=== PATIENT | female | born 1960 | race African-American/Black ===

== ENCOUNTER 2017-05-10 11:35 | Outpatient (CLI) | payer MEDICARE, MEDICAID ==
[~2017-05-10 11:35] MED LIST: ERGO50003 PO; HYDR-3326 PO; LANS30CA56 PO; PRAV40TA PO; TRAZ-147 PO
[2017-05-10 12:06] LABS: BASOPHILS # (AUTO) 0.3 /CMM (0.0-0.2); EOSINOPHILS # (AUTO) 0.1 /CMM (0.0-0.7); EOSINOPHILS % (AUTO) 0.9 % (0.0-6.0); HEMATOCRIT 42 % (33-45); HEMOGLOBIN 13.9 g/dL (11.5-14.8); LYMPHOCYTES # (AUTO) 2.7 /CMM (0.8-4.8); LYMPHOCYTES % (AUTO) 33.9 % (20.0-44.0); MEAN CORPUSCULAR HEMOGLOBIN 30 PG (26.0-33.0); MEAN CORPUSCULAR HGB CONC 33 g/dl (31.0-36.0); MEAN CORPUSCULAR VOLUME 90 fL (82-100); MONOCYTES # (AUTO) 0.7 /CMM (0.1-1.30); MONOCYTES % (AUTO) 8.3 % (2.0-12.0); NEUTROPHILS # (AUTO) 4.3 /CMM (1.8-8.9); NEUTROPHILS % (AUTO) 52.9 % (43.0-81.0); PLATELET COUNT (AUTO) 289 /CMM (150-450); RDW COEFFICIENT OF VARIATION 12.7 (11.5-15.0); RED BLOOD CELL COUNT(AUTO) 4.65 MIL/uL (4.0-5.2); WHITE BLOOD COUNT (AUTO) 8.1 K/uL (4.3-11.0)
[2017-05-10 12:49] LABS: INR 0.88 (0.87-1.13); PROTHROMBIN TIME 9.2 SECS (9.5-12.7)
== END 2017-05-10 23:59 | disposition home or self-care (01) ==
LOC: LAB 11:35
PROVIDERS: ATTEND Internal Medicine
DX: Z01.818 Encounter for other preprocedural examination (principal); R06.00 Dyspnea, unspecified
CPT/HCPCS: 36415; 71010-TC; 85025-TC; 85610-TC; 85730-TC

== ENCOUNTER 2017-09-22 11:59 | Outpatient (CLI) | payer MEDICARE, MEDICAID ==
[~2017-09-22 11:59] MED LIST changes: +ERGO500014 PO; -ERGO50003 PO; -HYDR-3326 PO; +HYDR-3974 PO
[2017-09-22 12:51] LABS: BASOPHILS % (AUTO) 0.8 % (0.0-2.0); EOSINOPHILS # (AUTO) 0.1 /CMM (0.0-0.7); EOSINOPHILS % (AUTO) 1.5 % (0.0-6.0); HEMATOCRIT 39 % (33-45); HEMOGLOBIN 13.1 g/dL (11.5-14.8); LYMPHOCYTES # (AUTO) 2.3 /CMM (0.8-4.8); MEAN CORPUSCULAR HEMOGLOBIN 30 PG (26.0-33.0); MEAN CORPUSCULAR HGB CONC 34 g/dl (31.0-36.0); MEAN CORPUSCULAR VOLUME 89 fL (82-100); MONOCYTES # (AUTO) 0.5 /CMM (0.1-1.30); MONOCYTES % (AUTO) 8.7 % (2.0-12.0); NEUTROPHILS # (AUTO) 2.9 /CMM (1.8-8.9); PLATELET COUNT (AUTO) 289 /CMM (150-450); RDW COEFFICIENT OF VARIATION 14.5 (11.5-15.0); RED BLOOD CELL COUNT(AUTO) 4.36 MIL/uL (4.0-5.2); WHITE BLOOD COUNT (AUTO) 5.9 K/uL (4.3-11.0)
[2017-09-22 12:57] LABS: CALCIUM, SERUM 8.9 mg/dL (8.5-10.1); CREATININE 0.8 mg/dL (0.6-1.3); POTASSIUM 4.1 mmol/L (3.5-5.1)
[2017-09-22 13:09] LABS: INR 0.95 (0.87-1.13)
[2017-09-22 13:43] LABS: APPEARANCE,URINE SL CLOUDY (CLEAR); BILIRUBIN,URINE 1+ (NEGATIVE); BLOOD, URINE NEGATIVE Ery/uL (NEGATIVE); COLOR,URINE YELLOW (YELLOW); KETONES,URINE TRACE (NEGATIVE); LEUKOCYTE ESTERASE ,URINE NEGATIVE (NEGATIVE); NITRITE, URINE NEGATIVE (NEGATIVE); PROTEIN,URINE TRACE mg/dl (NEGATIVE); UGLUCOSE NEGATIVE (NEGATIVE); UROBILINOGEN,URINE 0.2 EU/dL (0.2)
[2017-09-22 13:47] LABS: RBC,URINE 0-2 /HPF (0-2)
[2017-09-22 13:48] LABS: BACTERIA,URINE Moderate /HPF (None Seen); SQUAMOUS EPITHELIAL CELL,UR Moderate /HPF (None Seen); WBC,URINE 0-2 /HPF (0-3)
== END 2017-09-22 23:59 | disposition home or self-care (01) ==
LOC: LAB 11:59
PROVIDERS: ATTEND Internal Medicine
DX: Z01.818 Encounter for other preprocedural examination (principal)
CPT/HCPCS: 36415; 71046; 80048-TC; 81000-TC; 85025-TC; 85610-TC; 85730-TC; 87086-TC

== ENCOUNTER 2018-11-15 13:55 | Emergency (ER) | payer MEDICARE, MEDICAID ==
[~2018-11-15] VITALS: Ht 167.6 cm; Wt 74.8 kg
[~2018-11-15 13:55] MED LIST changes: -TRAZ-147 PO; +TRAZ-214 PO
--- NOTE | 2018-11-15 14:25 | NUR ---
AAOX3, C/O DIFFUSED ABDOMINAL PAIN S/P ACCIDENTAL INGESTION OF HYDROGEN PEROXIDE. RR IS EVEN AND UNLABORED WITH NAD NOTED. SKIN IS WARM AND DRY. AWAITING MD FOR EVAL.
[2018-11-15] MEDS ORDERED: PANTOPRAZOLE 40 MG VIAL IV ONE (15:00)
[2018-11-15] MEDS ORDERED: FAMOTIDINE/PF INJ 20 MG/2 ML VIAL IV ONE ×2 (15:00→15:04)
[2018-11-15] MEDS ORDERED: IV NS 0.9% 1,000 ML BAG IV ONE (15:00)
[2018-11-15] MEDS ORDERED: MAG HYDROX/AL HYDROX/SIMETH 30 ML UDC PO ONE (15:00)
[2018-11-15] MEDS ORDERED: ONDANSETRON HCL/PF 4 MG/2 ML VIAL IVP ONE (15:00)
[2018-11-15] MEDS ORDERED: MAG HYDROX/AL HYDROX/SIMETH 30 ML UDC ONE (15:04)
[2018-11-15] MEDS ORDERED: ONDANSETRON HCL/PF 4 MG/2 ML VIAL ONE (15:04)
[2018-11-15] MEDS ORDERED: PANTOPRAZOLE 40 MG VIAL ONE (15:04)
[2018-11-15 15:18] LABS: BASOPHILS # (AUTO) 0.1 /CMM (0.0-0.2); BASOPHILS % (AUTO) 0.7 % (0.0-2.0); EOSINOPHILS % (AUTO) 0.4 % (0.0-6.0); HEMATOCRIT 43 % (33-45); HEMOGLOBIN 14.6 g/dL (11.5-14.8); LYMPHOCYTES # (AUTO) 1.6 /CMM (0.8-4.8); LYMPHOCYTES % (AUTO) 16.5 % (20.0-44.0); MEAN CORPUSCULAR HGB CONC 34 g/dl (31.0-36.0); MEAN CORPUSCULAR VOLUME 95 fL (82-100); MONOCYTES # (AUTO) 0.5 /CMM (0.1-1.30); MONOCYTES % (AUTO) 5.4 % (2.0-12.0); NEUTROPHILS # (AUTO) 7.4 /CMM (1.8-8.9); PLATELET COUNT (AUTO) 312 /CMM (150-450); WHITE BLOOD COUNT (AUTO) 9.6 K/uL (4.3-11.0)
[2018-11-15 15:25] LABS: ALANINE AMINOTRANSFERASE 18 U/L (12-78); ALBUMIN 3.4 g/dL (3.4-5.0); ALKALINE PHOSPHATASE 104 U/L (46-116); ASPARTATE AMINOTRANSFERASE 15 U/L (15-37); BILIRUBIN,DIRECT 0.1 mg/dL (0.0-0.2); BILIRUBIN,TOTAL 0.5 mg/dL (0.2-1.0); CALCIUM, SERUM 9.3 mg/dL (8.5-10.1); CARBON DIOXIDE 29 mmol/L (21-32); CHLORIDE 103 mmol/L (98-107); CREATININE 0.9 mg/dL (0.6-1.3); GLUCOSE 134 mg/dL (74-106); LIPASE 71 U/L (73-393); POTASSIUM 3.5 mmol/L (3.5-5.1); SODIUM SERUM 139 mmol/L (136-145); TOTAL PROTEIN, SERUM 7.5 g/dL (6.4-8.2); UREA NITROGEN, BLOOD 10 mg/dL (7-18)
[2018-11-15] MEDS ORDERED: oxyCODONE/APAP (5/325 MG) 1 UDTAB TABLET PO ONE (15:30)
--- NOTE | 2018-11-15 15:30 | NUR ---
URINE OBTAINED SENT TO THE LAB.
[2018-11-15] MEDS ORDERED: oxyCODONE/APAP (5/325 MG) 1 UDTAB TABLET ONE (15:31)
[2018-11-15 15:49] LABS: APPEARANCE,URINE SL CLOUDY (CLEAR); BILIRUBIN,URINE 1+ (NEGATIVE); BLOOD, URINE NEGATIVE Ery/uL (NEGATIVE); COLOR,URINE YELLOW (YELLOW); KETONES,URINE 1+ (NEGATIVE); LEUKOCYTE ESTERASE ,URINE NEGATIVE (NEGATIVE); NITRITE, URINE NEGATIVE (NEGATIVE); PH,URINE 5.5 (5.0-8.0); PROTEIN,URINE TRACE mg/dl (NEGATIVE); UGLUCOSE NEGATIVE (NEGATIVE)
[2018-11-15 16:30] LABS: RBC,URINE 0-2 /HPF (0-2); WBC,URINE 0-2 /HPF (0-3)
[2018-11-15 16:31] LABS: BACTERIA,URINE Moderate /HPF (None Seen); SQUAMOUS EPITHELIAL CELL,UR Moderate /HPF (None Seen); URINE AMORPHOUS URATE Few /HPF (None Seen)
--- NOTE | 2018-11-15 17:05 | NUR ---
IV removed. Catheter intact and site benign. Pressure and 4x4 applied to site. No bleeding noted.Patient discharged to home in stable condition. Written and verbal after care instructions given. Patient verbalizes understanding of instruction.
[2018-11-15 17:08] VITALS: BP 124/69
== END 2018-11-15 17:09 | disposition home or self-care (01) ==
LOC: ER 13:55
DX: T49.0X1A Poisoning by local antifungal, anti-infective and anti-inflammatory drugs, accidental (unintentional), initial encounter (principal); K29.60 Other gastritis without bleeding; R53.1 Weakness; R42 Dizziness and giddiness; I10 Essential (primary) hypertension; E11.9 Type 2 diabetes mellitus without complications; E78.00 Pure hypercholesterolemia, unspecified; F17.200 Nicotine dependence, unspecified, uncomplicated; Z60.2 Problems related to living alone; Z98.890 Other specified postprocedural states; Y92.89 Other specified places as the place of occurrence of the external cause
CPT/HCPCS: 36415; 80048; 80076; 81001; 83690; 84484; 85025; 87086; 93005; 96361; 96374; 96375; 99284; C9113; J2405; J3490; J7030; 81000-TC

== ENCOUNTER 2018-11-20 01:18 | Emergency (ER) | payer MEDICARE, MEDICAID ==
[~2018-11-20] VITALS: Ht 167.6 cm; Wt 90.7 kg
--- NOTE | 2018-11-20 01:40 | NUR ---
PT BIBSELF C/O ABDOMINAL PAIN AND RECTAL BLEEDING X1 DAY. PT AAOX4. RESPIRATIONS EVEN AND UNLABORED. SKIN INTACT. NO ACUTE DISTRESS NOTED. WILL CONTINUE TO MONITOR
[2018-11-20] MEDS ORDERED: FAMOTIDINE/PF INJ 20 MG/2 ML VIAL IV ONE (01:45)
[2018-11-20] MEDS ORDERED: ONDANSETRON HCL/PF 4 MG/2 ML VIAL ONE (01:45)
[2018-11-20] MEDS ORDERED: ONDANSETRON HCL/PF 4 MG/2 ML VIAL IVP ONE (02:00)
[2018-11-20] MEDS ORDERED: IV NS 0.9% 1,000 ML BAG IV ONE (02:00)
[2018-11-20] MEDS ORDERED: FAMOTIDINE/PF INJ 40 MG in IV D5W 50 ML IV ONE (02:00)
--- NOTE | 2018-11-20 02:05 | NUR ---
MERCHANDISE PLANNER AT BEDSIDE FOR BLOOD DRAW
[2018-11-20 02:19] LABS: BASOPHILS % (AUTO) 0.7 % (0.0-2.0); EOSINOPHILS % (AUTO) 0.9 % (0.0-6.0); HEMATOCRIT 34 % (33-45); HEMOGLOBIN 11.8 g/dL (11.5-14.8); LYMPHOCYTES # (AUTO) 2.4 /CMM (0.8-4.8); MEAN CORPUSCULAR HGB CONC 35 g/dl (31.0-36.0); MEAN CORPUSCULAR VOLUME 95 fL (82-100); MONOCYTES # (AUTO) 0.6 /CMM (0.1-1.30); NEUTROPHILS # (AUTO) 3.6 /CMM (1.8-8.9); NEUTROPHILS % (AUTO) 53.4 % (43.0-81.0); PLATELET COUNT (AUTO) 296 /CMM (150-450); RED BLOOD CELL COUNT(AUTO) 3.61 MIL/uL (4.0-5.2); WHITE BLOOD COUNT (AUTO) 6.7 K/uL (4.3-11.0)
[2018-11-20 02:24] LABS: CALCIUM, SERUM 8.3 mg/dL (8.5-10.1); CREATININE 0.8 mg/dL (0.6-1.3); POTASSIUM 3.9 mmol/L (3.5-5.1)
--- NOTE | 2018-11-20 02:25 | NUR ---
Edward portillo in ED - 11/20/18 at 0226 by HAYLEY PT BROUGHT BY RADIOLOGY FOR CT
--- NOTE | 2018-11-20 02:26 | NUR ---
PT RETURNED FROM CT
[2018-11-20 02:30] LABS: ALBUMIN 2.9 g/dL (3.4-5.0); BILIRUBIN,TOTAL 0.3 mg/dL (0.2-1.0); TOTAL PROTEIN, SERUM 6.2 g/dL (6.4-8.2)
--- NOTE | 2018-11-20 03:36 | NUR ---
Patient discharged to home in stable condition. Written and verbal after care instructions given. Patient verbalizes understanding of instruction. IV removed. Catheter intact and site benign. Pressure and 4x4 applied to site. No bleeding noted. Pt ambulatory with a steady gait
[2018-11-20 03:38] VITALS: BP 127/85
== END 2018-11-20 03:39 | disposition home or self-care (01) ==
LOC: ER 01:20
DX: K62.5 Hemorrhage of anus and rectum (principal); I10 Essential (primary) hypertension; E11.9 Type 2 diabetes mellitus without complications; E78.00 Pure hypercholesterolemia, unspecified; F17.200 Nicotine dependence, unspecified, uncomplicated; Z98.890 Other specified postprocedural states; Z60.2 Problems related to living alone; Z79.899 Other long term (current) drug therapy
CPT/HCPCS: 36415; 71045; 74176; 80048; 80076; 85025; 85730; 86850; 93005; 96365; 96375; 99284; J2405; J3490 ×2; J7030; J7060 ×2

== ENCOUNTER 2018-11-24 11:31 | Inpatient (IN) | payer MEDICARE, MEDICAID ==
[~2018-11-24] VITALS: Ht 167.6 cm; Wt 101.2 kg
[2018-11-24] VITALS (10 sets, daily range): BP systolic 101–153; BP diastolic 54–92
[2018-11-24] MEDS ORDERED: PANTOPRAZOLE 80 MG in IV NS 0.9% 100 ML IV ONE (12:00)
[2018-11-24] MEDS ORDERED: PANTOPRAZOLE 40 MG VIAL IV ONE (12:00)
[2018-11-24] MEDS ORDERED: IV NS 0.9% 1,000 ML BAG IV ONE (12:00)
[2018-11-24] MEDS ORDERED: NEXIUM 40 MG VIAL IV ONE (12:30)
--- NOTE | 2018-11-24 12:31 | NUR ---
RN NOTE 1200: BIBRA accompanied by family member, c/o bloody stools x2days. 1230: RW g20 PIV, started on IVF as ordered. With c/o 5/10 abdominal pain with verbal order of Morphine 4mg and Zofran 4mg PIV. Awaiting Protonix from pharmacy.
--- NOTE | 2018-11-24 12:31 | NUR ---
DR. FITCH MADE AWARE RE: PHARMACY RECOMMENDATION OF PROTONIX ORDER. WITH NEW ORDER TO D/C PROTONIX AND TO GIVE NEXIUM 40MG IV ONCE. PRIMARY RN AWARE.
[2018-11-24] MEDS ORDERED: ONDANSETRON HCL/PF 4 MG/2 ML VIAL ONE (12:33)
[2018-11-24] MEDS ORDERED: MORPHINE SULFATE INJ 4 MG/ML DISP.SYRIN ONE (12:34)
[2018-11-24 12:44] LABS: BASOPHILS # (AUTO) 0.1 /CMM (0.0-0.2); BASOPHILS % (AUTO) 0.7 % (0.0-2.0); EOSINOPHILS % (AUTO) 0.7 % (0.0-6.0); HEMATOCRIT 28 % (33-45); HEMOGLOBIN 9.5 g/dL (11.5-14.8); LYMPHOCYTES # (AUTO) 2.5 /CMM (0.8-4.8); LYMPHOCYTES % (AUTO) 31.4 % (20.0-44.0); MEAN CORPUSCULAR HGB CONC 34 g/dl (31.0-36.0); MEAN CORPUSCULAR VOLUME 96 fL (82-100); MONOCYTES # (AUTO) 0.7 /CMM (0.1-1.30); MONOCYTES % (AUTO) 8.1 % (2.0-12.0); NEUTROPHILS # (AUTO) 4.8 /CMM (1.8-8.9); NEUTROPHILS % (AUTO) 59.1 % (43.0-81.0); PLATELET COUNT (AUTO) 421 /CMM (150-450); RED BLOOD CELL COUNT(AUTO) 2.91 MIL/uL (4.0-5.2); WHITE BLOOD COUNT (AUTO) 8.1 K/uL (4.3-11.0)
[2018-11-24] MEDS ORDERED: MORPHINE SULFATE INJ 2 MG/ML DISP.SYRIN IV ONE (13:00)
[2018-11-24] MEDS ORDERED: ONDANSETRON HCL/PF 4 MG/2 ML VIAL IVP ONE (13:00)
[2018-11-24] MEDS ORDERED: METF-440 PO (13:10)
[2018-11-24] MEDS ORDERED: ROSU40TA22 PO (13:10)
[2018-11-24] MEDS ORDERED: ESCI10TA PO (13:10)
[2018-11-24] MEDS ORDERED: ASPI-1152 PO (13:10)
[2018-11-24] MEDS ORDERED: BENA5TAB5 PO (13:10)
[2018-11-24 13:14] LABS: CALCIUM, SERUM 8.7 mg/dL (8.5-10.1); CARBON DIOXIDE 27 mmol/L (21-32); CHLORIDE 106 mmol/L (98-107); CREATININE 0.8 mg/dL (0.6-1.3); GLUCOSE 95 mg/dL (74-106); POTASSIUM 4.9 mmol/L (3.5-5.1); SODIUM SERUM 140 mmol/L (136-145); UREA NITROGEN, BLOOD 25 mg/dL (7-18)
[2018-11-24 13:27] LABS: ALANINE AMINOTRANSFERASE 16 U/L (12-78); ALBUMIN 2.9 g/dL (3.4-5.0); ALKALINE PHOSPHATASE 110 U/L (46-116); ASPARTATE AMINOTRANSFERASE 12 U/L (15-37); BILIRUBIN,DIRECT 0.1 mg/dL (0.0-0.2); BILIRUBIN,TOTAL 0.2 mg/dL (0.2-1.0); LIPASE 76 U/L (73-393); TOTAL PROTEIN, SERUM 6.3 g/dL (6.4-8.2)
--- NOTE | 2018-11-24 14:21 | NUR ---
Awake, alert, verbalized feeling better after meds. Awaiting room inpatient
--- NOTE | 2018-11-24 14:29 | NUR ---
[id number] TELE MARILYN ACCEPTED
--- NOTE | 2018-11-24 15:01 | NUR ---
RN NOTE Report given at bedside, given to Odessa RIVERA. Patient VSS at this time. No active bleeding noted during in ER.
--- NOTE | 2018-11-24 15:30 | NUR ---
MAGICIAN HELPER NOTES PT ADMITTED ON TELE. ON TELEMONITORING OF SR WITH HR OF 85.
[2018-11-24] MEDS: IV NS 0.9% 1,000 ML IV PRN (16:06)
[2018-11-24] MEDS ORDERED: PEG 3350/NA SULF,BICARB,CL/KCL 4,000 ML BOTTLE PO ONE (16:30)
[2018-11-24] MEDS ORDERED: NA PHOS,M-B/NA PHOS,DI-BA 1 EA ENEMA RC PRN (16:30)
[2018-11-24] MEDS ORDERED: MAGNESIUM CITRATE 296 ML BOTTLE PO ONE ×2 (16:30→19:30)
--- NOTE | 2018-11-24 16:30 | NUR ---
BIODIESEL PRODUCT MANAGERWINTER SPORTS MANAGER NOTES RECEIVED PT VIA [facility] WITH 2 NURSES ASSIST. PT ABLE TO TRANSFER/AMBULATORY FROM [facility] TO ROOM/BED. PT A/O X4. TOLERATING RA WITH NO ACUTE RESPIRATORY DISTRESS NOTED. PIV TO RIGHT WRIST G20, FLUSHED WITH NS, INTACT AND OPERATIONAL. PT DENIES ANY CHEST PAIN. ADDED MILD PAIN IN THE ABDOMEN AND FELT A LITTLE NAUSEOUS, PAIN MEDICINE AND ZOFRAN RECENTLY GIVEN BEFORE PT TRANSFER TO ROOM PER ER NURSE, PT ALSO AWARE AND FAMILY BEDSIDE. SKIN IS INTACT. PT KEPT COMFORTABLE. DR SANDERS CAME AND SEE PT PERSONALLY AND MADE AWARE OF PT AND FAMILY FOR THE PLAN. CALL LIGHT KEPT WITHIN REACH. WILL CONTINUE TO MONITOR.
--- NOTE | 2018-11-24 17:00 | NUR ---
RN NOTES PT WASN'T ABLE TO TAKE MAGNESIUM CITRATE X1DOSE AT THIS TIME, PT ARGUING WITH STAFFS, SECURITY REGARDING HER SMOKING. DATABASE DESIGN ANALYST LENO ANTHONY STATED DON'T LET PT SMOKE. RN OFFERED NICOTINE PATCH, PT REFUSED. PT INSISTED FOR HER SMOKING PHYSICALLY OUTSIDE. CN AWARE. WILL ORDER ANOTHER ONE TIME DOSE WHEN PT COMES BACK FROM SMOKING OUTSIDE.
[2018-11-24] MEDS: NEXIUM 40 MG VIAL IV SCH (17:04)
[2018-11-24 17:14] LABS: IRON, SERUM 34 ug/dl (50-175); TOTAL IRON BINDING CAPACITY 254 ug/dl (250-450)
[2018-11-24 17:27] LABS: FERRITIN 28 ng/mL (8-388)
--- NOTE | 2018-11-24 17:35 | NUR ---
SKEIN BLEACHER NOTES PT AWARE OF PLAN TOMORROW FOR EGD AND COLONOSCOPY. CONSENTS SIGNED BY PT. BT TO TRANSFUSE 1PRBC TODAY IN PREPARATION FOR PROCEDURE. CONSENTS AGAIN OBTAINED FROM PT. WILL ENDORSE TO INCOMING NIGHT NURSE.
--- NOTE | 2018-11-24 19:42 | NUR ---
RN OPENING NOTES RECEIVED PATIENT AWAKE IN BED. PATIENT IS A/O X 4. NO SIGNS OF DISTRESS OR DISCOMFORT AT THIS TIME. DENIES PAIN AT THIS TIME. IV SITE PATENT AND INTACT. SAFETY PRECAUTIONS IMPLEMENTED. CALL LIGHT WITHIN REACH. WILL CONTINUE TO MONITOR PATIENT THROUGHOUT THE SHIFT.
--- NOTE | 2018-11-24 20:06 | NUR ---
RN NOTES PATIENT INSISTED ON SMOKING. PATIENT IS CURRENTLY DOWNSTAIRS SMOKING 1 STICK OF CIGARETTE. PATIENT IS ACCOMPANIED BY XIOMARA.
--- NOTE | 2018-11-24 21:00 | NUR ---
RN NOTES VITALS PRIOR TO PICKING UP BLOOD FROM BLOOD BANK: TEMP 98.0 F, BP 129/65, PULSE 73, RR 18.
--- NOTE | 2018-11-24 22:48 | NUR ---
RN NOTES PATIENT IS TOLERATING BLOOD TRANSFUSION AT THIS TIME. NO SIGNS OF REACTIONS. VITAL SIGNS ARE STABLE AND CONSISTENT AT THIS TIME.
[2018-11-24] MEDS: HYDROCODONE/APAP 5/325MG 1 EACH TABLET PO PRN (23:20)
[2018-11-25] VITALS: BP_SYST 122; BP_DIAS 70; BP_DIAS 92
--- NOTE | 2018-11-25 00:15 | NUR ---
RN NOTES BLOOD TRANSFUSION COMPLETED. PATIENT VITAL SIGNS STABLE POST TRANSFUSION. NO REACTIONS OCCURRED THROUGHOUT THE TRANSFUSION. PATIENT TOLERATED BLOOD TRANSFUSION WELL. WILL CONTINUE TO MONITOR PATIENT THROUGHOUT THE SHIFT.
[2018-11-25 04:00] VITALS: BP 139/71
--- NOTE | 2018-11-25 06:17 | NUR ---
RN CLOSING NOTES PATIENT IS RESTING IN BED, COMFORTABLY. PATIENT IS TOLERATING RA WITH NO ACUTE RESPIRATORY DISTRESS NOTED. PATIENT DENIES SOB. IV SITE PATENT AND INTACT, RUNNING WELL. ALL NEEDS MET. PATIENT DENIES DISCOMFORT OR PAIN AT THIS TIME. ALL MEDS GIVEN. SAFETY PRECAUTIONS IMPLEMENTED. TELE READING SR 64 AT THIS TIME. CALL LIGHT WITHIN REACH. CONSENT IS OBTAINED. WILL ENDORSE TO AM SHIFT FOR CONTINUITY OF CARE.
[2018-11-25 07:06] LABS: BASOPHILS # (AUTO) 0.1 /CMM (0.0-0.2); EOSINOPHILS % (AUTO) 1.5 % (0.0-6.0); HEMATOCRIT 28 % (33-45); HEMOGLOBIN 9.6 g/dL (11.5-14.8); LYMPHOCYTES # (AUTO) 2.8 /CMM (0.8-4.8); LYMPHOCYTES % (AUTO) 43.1 % (20.0-44.0); MEAN CORPUSCULAR HGB CONC 34 g/dl (31.0-36.0); MEAN CORPUSCULAR VOLUME 96 fL (82-100); MONOCYTES # (AUTO) 0.6 /CMM (0.1-1.30); MONOCYTES % (AUTO) 9.5 % (2.0-12.0); NEUTROPHILS % (AUTO) 44.9 % (43.0-81.0); PLATELET COUNT (AUTO) 342 /CMM (150-450); RED BLOOD CELL COUNT(AUTO) 2.93 MIL/uL (4.0-5.2); WHITE BLOOD COUNT (AUTO) 6.6 K/uL (4.3-11.0)
--- NOTE | 2018-11-25 07:20 | NUR ---
BUSINESS SYSTEMS LEAD OPENING NOTES RECEIVED PT IN THE ROOM, AWAKE, A/O X4. PT TOLERATING RA, WITH NO ACUTE RESPIRATORY DISTRESS NOTED. ON TELEMONITORING SB WITH HR OF 58. WHILE DOING ROUNDS, PT JUST CAME BACK FROM SMOKING OUTSIDE WITH NIGHT BATTERY STACKER. PT REMINDED OF SMOKING HAZARDS AND RISKS. PT INSIST TO SMOKE WHENEVER SHE WANTS. PT DENIES PAIN OR ANY DISCOMFORT AT THIS MOMENT. PT DENIES ANY CONCERNS AND QUESTIONS.IVF NS AT 75ML/HR TO RIGHT WRIST G20, INTACT AND FLUID INFUSING WELL. PT KEPT COMFORTABLE. HOB ELEVATED. PT'S BED IN LOWEST, LOCKED POSITION WITH SR X2. WILL CONTINUE PLAN OF CARE.
[2018-11-25 07:27] LABS: ALBUMIN 2.5 g/dL (3.4-5.0); BILIRUBIN,TOTAL 0.3 mg/dL (0.2-1.0); CALCIUM, SERUM 8.3 mg/dL (8.5-10.1); CREATININE 0.7 mg/dL (0.6-1.3); POTASSIUM 3.9 mmol/L (3.5-5.1); TOTAL PROTEIN, SERUM 5.5 g/dL (6.4-8.2)
[2018-11-25 08:00] VITALS: BP 103/54
[2018-11-25 08:20] VITALS: BP 103/45
[2018-11-25] MEDS: NEXIUM 40 MG VIAL IV SCH (08:47)
--- NOTE | 2018-11-25 08:50 | NUR ---
RN NOTES CALLED/TEXTED ON-CALL MD FOR GI DR GALICIA TO VERIFY UPCOMING PROCEDURE EGD AND COLONOSCOPY. MD MADE AWARE PT WAS NPO SINCE MIDNIGHT. AWAITING FOR RESPONSE. PRAVEEN/BROOKS AWARE.
[2018-11-25] MEDS ORDERED: ESCITALOPRAM OXALATE (10 MG) 10 MG TABLET PO SCH (09:00)
[2018-11-25] MEDS ORDERED: BENAZEPRIL HCL 5 MG TABLET PO SCH (09:00)
--- NOTE | 2018-11-25 09:37 | NUR ---
RN NOTES RECEIVED RESPONSE FROM GI /GRAYSON. PROCEDURE EGD AND COLONOSCOPY WILL NOT BE DONE TODAY. MD ORDERED PUT PT ON CLEAR LIQUID DIET. WILL INFORM PT.
[2018-11-25] MEDS: METFORMIN 500 MG TABLET PO SCH (09:58)
[2018-11-25] MEDS: ATORVASTATIN 40 MG TABLET PO SCH (09:58)
[2018-11-25] MEDS: IV NS 0.9% 1,000 ML IV PRN (10:42)
--- NOTE | 2018-11-25 11:36 | NUR ---
RN NOTES SEEN AND EVALUATED BY DR GALICIA. MD STATED SINCE LABS ARE STABLE AND NO PRESENT BLOOD IN THE STOOL OF NOW. PT CAN GO BACK TO REGULAR DIET AND NURSE TO CONTINUE MONITORING BLOOD IN THE STOOL AND TAKE PICTURE OF IT AND SEND TO MD. OF NOW, NO SCHEDULING OF EGD AND COLONOSCOPY UNTIL PRESENT BLOOD IN THE STOOL. PRAVEEN/BROOKS MADE AWARE.
--- NOTE | 2018-11-25 13:27 | NUR ---
RN NOTES PT JUST HAD BM, IN THE BEDSIDE COMMODE. STOOL IS DARK BROWN, LIQUID. BUT NOT WATERY. WILL CONTINUE TO MONITOR.
[2018-11-25] MEDS: HYDROCODONE/APAP 5/325MG 1 EACH TABLET PO PRN ×2 (14:41→20:22)
[2018-11-25 16:13] VITALS: BP 93/55
--- NOTE | 2018-11-25 18:49 | NUR ---
MS RN CLOSING NOTES PT REMAINS IN THE ROOM, AWAKE, A/O X4. PT TOLERATING RA, WITH NO ACUTE RESPIRATORY DISTRESS NOTED. PT DENIES PAIN OR ANY DISCOMFORT AT THIS MOMENT. IVF NS AT 75ML/HR TO LEFT HAND G20, INTACT AND FLUID INFUSING WELL. ALL NEEDS AND CARE PROVIDED. PT ABLE TO MAKE NEEDS KNOWN. PT KEPT COMFORTABLE. HOB ELEVATED. PT'S BED IN LOWEST, LOCKED POSITION WITH SR X2. WILL ENDORSE TO INCOMING NIGHT NURSE FOR HUNTER.
--- NOTE | 2018-11-25 19:34 | NUR ---
MS RN OPENING NOTES: RECEIVED PT ON ROOM AIR AND IS TOLERATING WELL. NO SOB NOTED. PT COMPLAINING OF ABDOMINAL PAIN AT THIS TIME. PT SITTING UP IN BED. PT HAS IV ON L HAND IS BEING INFUSED WITH IV NS AT 75ML/HR. BED KEPT IN LOW, LOCKED POSITION, AND SIDE RAILS X 2UP . WILL CONTINUE TO MONITOR PT.
--- NOTE | 2018-11-25 19:45 | NUR ---
MS RN NOTES: PT WANTING TO GO FOR A SMOKE BREAK. EXPLAINED TO PT THAT SMOKING IS NOT RECOMMENDED AND THAT SHE SHOULDN'T SMOKE. "I DON'T WANT TO HEAR THAT RIGHT NOW. I AM ALLOWED A SMOKING BREAK.
[2018-11-25 20:02] VITALS: BP 140/73
--- NOTE | 2018-11-25 20:07 | NUR ---
MS RN NOTES: PT WENT DOWN FOR A SMOKE BREAK WITH TARA MCHUGH.
--- NOTE | 2018-11-25 20:26 | NUR ---
MS RN NOTES: PT BACK FROM SMOKE BREAK AND IS REQUESTING FOR PAIN MEDICATION. PT COMPLAINING OF 7/10 AB PAIN. PT GIVEN NORCO 5 PO. WILL CONTINUE TO MONITOR.
--- NOTE | 2018-11-25 21:37 | NUR ---
MS RN NOTES: NOTED L HAND IV INFILTRATED. PT HARD STICK. WILL ATTEMPT TO START AN IV ONCE ACCUVEIN AVAILABLE.
--- NOTE | 2018-11-25 21:53 | NUR ---
MS RN NOTES: EXPLAINED TO PT THAT SHE ALREADY HAD A SMOKE BREAK. EXPLAINED TO PT RISKS FO SMOKING BUT PT STILL REFUSING. "YOU GUYS CAN'T KEEP DOING THIS TO ME. I HATE BEING IN A HOSPITAL." PT STILL HESITANT AND KEEPS GOING TO NURSE STATION. PT WENT DOWN WITH OSBALDO MCHUGH FOR ANOTHER SMOKE BREAK AND EXPLAINED TO HER THAT IS HER LAST ONE.
--- NOTE | 2018-11-25 21:56 | NUR ---
MS RN NOTES: PAGED DR. SANDERS'S OFFICE AND LEFT A VOICEMAIL. PT REQUESTING FOR A SLEEPING AID. AWAITING FOR CALL BACK.
--- NOTE | 2018-11-25 22:06 | NUR ---
MS RN NOTES: PT BACK FROM SMOKE BREAK.
--- NOTE | 2018-11-25 22:09 | NUR ---
MS RN NOTES: GOT CALL BACK FROM DR. SANDERS; GOT ORDER FOR AMBIEN 10MG PO PRN FOR SLEEP QHS.
[2018-11-25] MEDS: ZOLPIDEM TARTRATE 10 MG TABLET PO PRN (22:26)
--- NOTE | 2018-11-25 22:29 | NUR ---
MS RN NOTES: PT REQUESTING FOR SOMETHING FOR SLEEP. PT WAS ADMINISTERED AMBIEN 10MG PO. EXPLAINED TO PT TO STAY IN BED AND CALL FOR ASSISTANCE WHEN NEEDED SIDE EFFECTS MAY CAUSE DROWSINESS AND DIZZINESS. WILL CONTINUE TO MONITOR.
--- NOTE | 2018-11-25 22:32 | NUR ---
MS RN NOTES: PT ALSO DOES NOT WANT A NEW IV STARTED RIGHT NOW SHE IS HYDRATING ENOUGH AND WANTS TO REST FOR NOW. WILL ATTEMPT AT ANOTHER TIME.
--- NOTE | 2018-11-26 05:58 | NUR ---
MS RN NOTES: PT WENT DOWN FOR A SMOKE BREAK WITH TARA MCHUGH.
--- NOTE | 2018-11-26 06:06 | NUR ---
MS RN NOTES: PT BACK FROM SMOKE BREAK.
--- NOTE | 2018-11-26 06:45 | NUR ---
MS RN CLOSING NOTES: ALL NEEDS WERE ATTENDED AND ANTICIPATED FOR. NO SOB NOTED. NO S/S OF DISTRESS. PT IN BED AT THIS TIME RESTING COMFORTABLY AND IS ON HER PHONE. BED KEPT IN LOW, LOCKED POSITION, AND SIDE RAILS X 2UP. WILL ENDORSE TO AM NURSE FOR HUNTER. Addendum: 11/26/18 at 0730 by TAMIE SHARMA RN L HAND IV INFILTRATED. ATTEMPTED TO START IV ON R HAND WITH ACCUVEIN BUT UNSUCCESSFUL. INFORMED AM NURSE. PT ONLY ON IV NS AT 75ML/HR AND NEXIUM FOR IV MEDS. RECEIVING NURSE MADE AWARE.
--- NOTE | 2018-11-26 07:25 | NUR ---
MS/RN OPENING NOTE THE PATIENT IS RECEIVED IN BED. ALERT AND ORIENTED X4. ABLE TO MAKE NEEDS KNOWN VERBALLY. IN ROOM AIR AND DENIES SOB. RESPIRATION REGULAR AND UNLABORED. DENIES PAIN. THE PATIENT IS IN NO APPARENT DISTRESS. THE PATIENT DOES NOT HAVE IV SITE. WILL ATTEMPT TO PUT AN IV. BED LOW AND LOCKED. SIDE RAILS UP X3. CALL LIGHT WITHIN REACH. WILL CONTINUE TO MONITOR.
[2018-11-26 08:00] VITALS: BP 133/53
[2018-11-26] MEDS: ATORVASTATIN 40 MG TABLET PO SCH (08:35)
[2018-11-26] MEDS: METFORMIN 500 MG TABLET PO SCH (08:35)
[2018-11-26] MEDS: NEXIUM 40 MG VIAL IV SCH (08:41)
[2018-11-26] MEDS: HYDROCODONE/APAP 5/325MG 1 EACH TABLET PO PRN ×2 (11:58→20:00)
[2018-11-26] MEDS ORDERED: ONDANSETRON HCL/PF 4 MG/2 ML VIAL IV PRN (12:30)
--- NOTE | 2018-11-26 12:31 | NUR ---
MS/RN NOTE THE PATIENT IS SEN BY DR GALICIA AND NEW ORDER FOR ZOFRAN IS RECEIVED. THE ORDER IS READ BACK, VERIFIED. NOTED AND CARRIED OUT.
[2018-11-26 16:00] VITALS: BP_SYST 130; BP_DIAS 60; BP_DIAS 69
[2018-11-26] MEDS ORDERED: ONDANSETRON HCL 4 MG/5 ML SOLUTION PO ONE (16:00)
--- NOTE | 2018-11-26 16:00 | NUR ---
MS/RN NOTE THE PATIENT COMPLAINS OF NAUSEA. PATIENT HAS IV PUSH ZOFRAN BUT NO IV BECAUSE SHE DOES NOT WANT IV TO BE STARTED. RECEIVED ORDER FROM DR GALICIA FOR ZOFRAN 4 MG PO X1. NOTED AND CARRIED OUT.
--- NOTE | 2018-11-26 17:23 | NUR ---
MS/RN NOTE PATIENT COMPLAINS OF NAUSEA. ONDASETRON GIVEN PER ORDER. WILL CONTINUE TO MONITOR.
--- NOTE | 2018-11-26 17:31 | NUR ---
MS/RN NOTE DR SANDERS IS AWARE THAT THE PATIENT REFUSSES IV INSERTION. NO NEW ORDER PER MD. WILL ENCOURAGE THE PATIENT TO DRINK FLUIDS TOLERATED.
--- NOTE | 2018-11-26 18:08 | NUR ---
MS/RN OPENING NOTE THE PATIENT ALERT AND ORIENTED X4. IN ROOM AIR AND SATURATION IS AT 96%. DENIES SOB. RESPIRATION REGULAR AND UNLABORED. DENIES PAIN. PATIENT AGREED TP HAVE IV INSERTION LATER TONIGHT. ALL NEEDS ATTENDED AND ANTICIPATED. CALL LIGHT WITHIN REACH. BED LOW AND LOCKED. SIDE RAILS UP X2. CALL LIGHT WITHIN REACH. WILL ENDORSE TO EMERGENCY RESPONSE COORDINATOR.
--- NOTE | 2018-11-26 19:42 | NUR ---
MS RN OPENING NOTES: RECEIVED PT ON ROOM AIR AND IS TOLERATING WELL. CALLED PHARMACY AND NO INSURANCE ACCOUNT REPRESENTATIVE PT IS SCHEDULED FOR [facility]. CALLED NURSING DIAL LATHE OPERATOR AND INFORMED HER THE SITUATION. GAVE HER A COPY OF THE ORDER AND SAID WILL BE DELIVERED. PT ON PHONE AT THIS TIME. IV IS INTACT. BED KEPT IN LOW, LOCKED POSITION, AND SIDE RAILS X 2UP. WILL CONTINUE TO MONITOR PT.
[2018-11-26] MEDS ORDERED: SORBITOL SOLUTION 30 ML ONE (19:48)
[2018-11-26] MEDS ORDERED: PEG 3350/NA SULF,BICARB,CL/KCL 4,000 ML BOTTLE ONE (19:49)
[2018-11-26 20:00] VITALS: BP 113/71
[2018-11-26] MEDS ORDERED: PEG 3350/NA SULF,BICARB,CL/KCL 4,000 ML BOTTLE PO ONE (20:00)
--- NOTE | 2018-11-26 20:00 | NUR ---
MS RN NOTES: PT COMPLAINING OF 7/10 TOOTHACHE AND GEN PAIN. PT WAS ADMINISTERED NORCO 5 PO. WILL CONTINUE TO MONITOR.
--- NOTE | 2018-11-26 20:22 | NUR ---
MS RN NOTES: PT WENT DOWN FOR A SMOKE BREAK WITH TAL MCHUGH. PT WANTS TO HAVE ONE LAST SMOKE BEFORE STARTING GOLYTELY.
--- NOTE | 2018-11-26 20:31 | NUR ---
MS RN NOTES: PT BACK FROM SMOKE BREAK.
--- NOTE | 2018-11-26 21:58 | NUR ---
MS RN NOTES: ANAT LIGHTING FIXTURES DECORATOR CALLED AND SAID THERE IS ONLY 2 SORBITOL LEFT. NO OTHER STOCK. WILL HAVE TO ENDORSE TO AM NURSE.
--- NOTE | 2018-11-26 22:18 | NUR ---
MS RN NOTES: PT VERY ANXIOUS AND FEELS HORRIBLE ABOUT TAKING GOLYTELY. EXPLAINED TO HER THAT IT IS NORMAL FOR HER TO KEEP GOING IT IS A PREPARATION FOR THE PROCEDURE IN THE MORNING. PT WANTING TO GO FOR A SMOKE BREAK. INFORMED HER THAT IT IS NOT RECOMMENDED. PT STILL ADAMANT ABOUT GOING. INFORMED HER THIS IS HER LAST ONE. PT WENT DOWN FOR A SMOKE BREAK WITH TAL MCHUGH.
--- NOTE | 2018-11-26 22:24 | NUR ---
MS RN NOTES: PT BACK FROM SMOKE BREAK AND REMINDED HER THAT GOLYTELY NEEDS TO BE COMPLETED BY MIDNIGHT. PT UNDERSTOOD.
[2018-11-26] MEDS: ZOLPIDEM TARTRATE 10 MG TABLET PO PRN (23:41)
--- NOTE | 2018-11-26 23:42 | NUR ---
MS RN NOTES: PT FINISHED ALL OF GO LYTELY AND VERBALIZED "I FEEL ALL FLUSHED OUT." INFORMED PT TO LEAVE IT UNFLUSHED SO I CAN SEE IT BUT PT SAYS IT'S ALL CLEAR. PT REQUESTING FOR SLEEPING AID. PT WAS ADMINISTERED AMBIEN 10MG PO WITH LITTLE SIP OF WATER.
--- NOTE | 2018-11-26 23:47 | NUR ---
MS RN NOTES: PT VERBALIZED THAT HER BMS "LOOKS JUST LIKE CLEAR WATER."
[2018-11-27] MEDS: HYDROCODONE/APAP 5/325MG 1 EACH TABLET PO PRN
--- NOTE | 2018-11-27 | NUR ---
MS RN NOTES: PT COMPLAINING OF AB CRAMPY PAIN 01/09. EXPLAINED TO PT THAT THIS IS HER LAST PAIN PILL THAT SHE CAN HAVE SHE IS NPO POST MIDNIGHT. PT WAS ADMINISTERED NORCO 5 PO AND UNDERSTOOD. ALSO EXPLAINED TO HER THAT SHE IS TO GET SORBITOL IN THE MORNING.
--- NOTE | 2018-11-27 05:31 | NUR ---
MS RN NOTES: PT UP AND SAID HER FEET ARE TIRED AND WOULD LIKE TO WALK AROUND THE UNIT.
--- NOTE | 2018-11-27 05:33 | NUR ---
MS RN NOTES: PT WENT DOWN FOR A FINAL SMOKE BREAK WITH TAL MCHUGH.
--- NOTE | 2018-11-27 05:46 | NUR ---
MS RN NOTES: PT BACK FROM SMOKE BREAK. PT ALSO AWAKE AND AGREED TO TAKE SORBITOL. MISSING 2 MORE SOLUTIONS PHARMACY CLOSED EARLY YESTERDAY AND DOCTOR OF DENTAL MEDICINE WAS ONLY ABLE TO PROVIDE 2 SOLUTIONS. WILL CALL PHARMACY ONCE OPEN TO DELIVER 2 MORE.
[2018-11-27] MEDS ORDERED: SORBITOL SOLUTION 30 ML PO ONE (06:00)
--- NOTE | 2018-11-27 06:09 | NUR ---
MS RN NOTES: PT VERBALIZING THAT AFTER SHE DRANK SORBITOL, IT IS GIVING HER AB PAIN. GAVE PT WARM COMPRESS FOR NOW SHE IS NPO.
--- NOTE | 2018-11-27 06:40 | NUR ---
MS RN CLOSING NOTES: ALL NEEDS WERE ATTENDED AND ANTICIPATED FOR. PT RESTING IN BED AT THIS TIME AND IS SAYING SHE DOES NOT FEEL WELL AFTER DRINKING THE SORBITOL. PT STILL HAVING BMS EVEN AFTER THE 2 SOLUTIONS OF SORBITOL TAKEN. PT HAS IV AND IS BEING INFUSED WITH IV NS AT 75ML/HR. PT UNDERSTANDS THAT SHE IS NPO OF RIGHT NOW. PROCEDURE SCHEDULED 1030 AM. BED KEPT IN LOW, LOCKED POSITION, AND SIDE RAILS X 2UP. WILL ENDORSE TO AM NURSE FOR HUNTER.
--- NOTE | 2018-11-27 06:58 | NUR ---
MS RN NOTES: SPOKE WITH EDGARDO FROM PHARMACY. INFORMED HER THAT 2 MORE SORBITOL SOLUTIONS ARE NEEDED ONLY 2 WERE ABLE TO BE OBTAINED BY DRIVER STARTING GATE. WILL ENDORSE TO AM NURSE.
--- NOTE | 2018-11-27 07:34 | NUR ---
MS/RN OPENING NOTE PATIENT IN BED IN STABLE CONDITION. A/O X 4. NO SIGNS OF ACUTE DISTRESS. NO COMPLAIN OF PAIN OR DISCOMFORT. NPO EXCEPT MEDICATION AT THIS TIME SECONDARY TO SCHEDULE COLONOSCOPY AND EGD. ALL NEEDS ATTENDED TO. CALL LIGHT WITHIN REACH. WILL CONTINUE TO MONITOR TO ENSURE SAFETY.
[2018-11-27 08:00] VITALS: BP 113/44
[2018-11-27] MEDS: METFORMIN 500 MG TABLET PO SCH (08:30)
[2018-11-27] MEDS: NEXIUM 40 MG VIAL IV SCH (08:30)
[2018-11-27] MEDS: ATORVASTATIN 40 MG TABLET PO SCH (08:30)
[2018-11-27] MEDS ORDERED: ERGOCALCIFEROL (VITAMIN D 2) 50,000 UNIT CAPSULE PO SCH (09:00)
--- NOTE | 2018-11-27 10:30 | NUR ---
MS/RN PATIENT LEFT FOR EGD/COLONOSCOPY PROCEDURE IN STABLE CONDITION VIA BED ACCOMPANIED BY Ki RIVERA.
[2018-11-27] MEDS ORDERED: ANESTHESIA TRAY IN PYXIS 1 EA TRAY MC ONE (10:48)
--- NOTE | 2018-11-27 12:45 | NUR ---
MS/RN PATIENT RETURN FROM EGD/COLONOSCOPY PROCEDURE IN STABLE CONDITION. SEEN BY DR GALICIA WITH ORDERS TO RESUME PREVIOUS DIET AND CLEAR FOR DISCHARGE. PAGED DR SANDERS AT THIS TIME.
--- NOTE | 2018-11-27 12:51 | NUR ---
MS/RN SPOKE WITH DR SANDERS AND MADE AWARE PER DR GALICIA PATIENT CLEAR TO DISCHARGE AND EGD/COLONOSCOPY RESULTS STATES DIVERTICULITIS SEVERE. PER DR SANDERS OKAY TO DISCHARGE HOME. PATIENT AWARE.
--- NOTE | 2018-11-27 14:07 | NUR ---
MS/ORTHOPEDIC NURSE PRACTITIONER PATIENT DISCHARGE HOME IN STABLE CONDITION. A/O X 4. NO SIGNS OF ACUTE DISTRESS. NO COMPLAIN OF PAIN OR DISCOMFORT. DISCHARGE EDUCATION AND TEACHINGS PROVIDED AND MADE AWARE TO FOLLOW UP WITH PRIMARY PHYSICIAN DR SANDERS WITHIN A WEEK. ALSO MADE AWARE PER DR SANDERS HE WILL SEND A SCRIPT TO HER PHARMACY FOR PPI MEDICATION, PATIENT VERBALIZED UNDERSTANDING. NAME BAND AND IV LINE REMOVED. LEFT IN STALE CONDITION VIA TAXI SELF ACCOMPANIED.
== END 2018-11-27 14:00 | disposition home or self-care (01) | DRG 378 ==
LOC: ER 11:32 → TELE 14:35 → MED 11-25 08:10
PROVIDERS: ADMIT Internal Medicine; ATTEND Internal Medicine
PROC: 30233N1 Transfusion of Nonautologous Red Blood Cells into Peripheral Vein, Percutaneous Approach (ICD-10-PCS; principal; 2018-11-24)
PROC: 0DJ08ZZ Inspection of Upper Intestinal Tract, Via Natural or Artificial Opening Endoscopic (ICD-10-PCS; 2018-11-27)
PROC: 0DJD8ZZ Inspection of Lower Intestinal Tract, Via Natural or Artificial Opening Endoscopic (ICD-10-PCS; 2018-11-27)
DX: K28.4 Chronic or unspecified gastrojejunal ulcer with hemorrhage (principal); E44.1 Mild protein-calorie malnutrition; D62 Acute posthemorrhagic anemia; I69.351 Hemiplegia and hemiparesis following cerebral infarction affecting right dominant side; K57.30 Diverticulosis of large intestine without perforation or abscess without bleeding; N19 Unspecified kidney failure; I10 Essential (primary) hypertension; F17.210 Nicotine dependence, cigarettes, uncomplicated; Z90.710 Acquired absence of both cervix and uterus; F32.9 Major depressive disorder, single episode, unspecified; K43.9 Ventral hernia without obstruction or gangrene; Z98.84 Bariatric surgery status; Z79.899 Other long term (current) drug therapy; K64.4 Residual hemorrhoidal skin tags; D50.9 Iron deficiency anemia, unspecified; Z79.82 Long term (current) use of aspirin; Z68.36 Body mass index [BMI] 36.0-36.9, adult; E11.9 Type 2 diabetes mellitus without complications
CPT/HCPCS: 36415; 80048-TC; 80053-TC; 80076-TC; 82378; 82728-TC; 83540-TC; 83605-TC; 83690-TC; 84484-TC; 85025-TC; 85610-TC; 85730-TC; 86850-TC; 86921-TC; 87081-TC; C9113; G0378; J2270; J2405; J2704; J3490; J7030; J7050; P9016-BL; Q0162

== ENCOUNTER 2020-03-17 13:42 | Emergency (ER) | payer MEDICARE, OTHER ==
[~2020-03-17] VITALS: Ht 167.6 cm; Wt 97.5 kg
[~2020-03-17 13:42] MED LIST changes: +BENA5TAB5 PO; +ESCI10TA PO; -LANS30CA56 PO; +METF-440 PO; -PRAV40TA PO; +ROSU40TA23 PO; -TRAZ-214 PO
--- NOTE | 2020-03-17 13:45 | NUR ---
AAOX3, CAME TO ER SENT BY DR SANDERS C/O R FOOT SWELLING X 2 WEEKS R/O DVT. DENIES ANY PAIN. RR IS EVEN AND UNLABORED WITH NAD NOTED. SKIN IS WARM AND DRY. AWAITING MD FOR EVAL.
[2020-03-17 14:25] LABS: BASOPHILS % (AUTO) 0.8 % (0.0-2.0); EOSINOPHILS % (AUTO) 1.5 % (0.0-6.0); HEMATOCRIT 39 % (33-45); HEMOGLOBIN 12.9 g/dL (11.5-14.8); LYMPHOCYTES % (AUTO) 36.7 % (20.0-44.0); MEAN CORPUSCULAR HGB CONC 33 g/dl (31.0-36.0); MEAN CORPUSCULAR VOLUME 99 fL (82-100); MONOCYTES # (AUTO) 0.4 /CMM (0.1-1.30); MONOCYTES % (AUTO) 8.3 % (2.0-12.0); NEUTROPHILS # (AUTO) 2.8 /CMM (1.8-8.9); NEUTROPHILS % (AUTO) 52.7 % (43.0-81.0); PLATELET COUNT (AUTO) 252 /CMM (150-450); RED BLOOD CELL COUNT(AUTO) 3.95 MIL/uL (4.0-5.2); WHITE BLOOD COUNT (AUTO) 5.4 K/uL (4.3-11.0)
[2020-03-17 14:33] LABS: CALCIUM, SERUM 8.6 mg/dL (8.5-10.1); CREATININE 0.8 mg/dL (0.6-1.3); POTASSIUM 3.7 mmol/L (3.5-5.1)
--- NOTE | 2020-03-17 15:25 | NUR ---
IV REMOVED Patient discharged to home in stable condition. Written and verbal after care instructions given. Patient verbalizes understanding of instruction.
[2020-03-17 15:31] VITALS: BP 115/60
--- NOTE | 2020-03-17 15:32 | NUR ---
Patient discharged to home in stable condition. Written and verbal after care instructions given. Patient verbalizes understanding of instruction.IV removed. Catheter intact and site benign. Pressure and 4x4 applied to site. No bleeding noted.
== END 2020-03-17 15:31 | disposition home or self-care (01) ==
LOC: ER 13:52
DX: R60.0 Localized edema (principal); I10 Essential (primary) hypertension; E11.9 Type 2 diabetes mellitus without complications; E78.00 Pure hypercholesterolemia, unspecified; Z98.890 Other specified postprocedural states; Z60.2 Problems related to living alone; Z79.84 Long term (current) use of oral hypoglycemic drugs; Z79.899 Other long term (current) drug therapy
CPT/HCPCS: 36415; 71045-TC; 80048-TC; 85025-TC; 85730-TC; 93971-TC

== ENCOUNTER → 2020-09-07 | Emergency (ER) | payer MEDICARE, OTHER ==
[~2020-09-07] VITALS: Ht 167.6 cm; Wt 98.0 kg
[~2020-09-07] MED LIST changes: +FAMO-131 PO
--- NOTE | 2020-09-07 08:11 | NUR ---
The patient BIB for c/o on and off abd pain 10/10. The patient is alert and oriented x4. In room air and denies SOB. Respiration regular and unlabored. Will continue to monitor the patient.
--- NOTE | 2020-09-07 08:13 | NUR ---
Dr Pisano at the bedside.
--- NOTE | 2020-09-07 08:45 | NUR ---
patient taken for CT scan. Left ER in stable condition.
[2020-09-07 08:51] LABS: BASOPHILS # (AUTO) 0.1 /CMM (0.0-0.2); BASOPHILS % (AUTO) 0.9 % (0.0-2.0); EOSINOPHILS % (AUTO) 2.3 % (0.0-6.0); HEMATOCRIT 40 % (33-45); HEMOGLOBIN 13.5 g/dL (11.5-14.8); LYMPHOCYTES # (AUTO) 2.2 /CMM (0.8-4.8); LYMPHOCYTES % (AUTO) 37.9 % (20.0-44.0); MEAN CORPUSCULAR HGB CONC 34 g/dl (31.0-36.0); MEAN CORPUSCULAR VOLUME 96 fL (82-100); MONOCYTES # (AUTO) 0.5 /CMM (0.1-1.30); MONOCYTES % (AUTO) 8.9 % (2.0-12.0); NEUTROPHILS # (AUTO) 2.9 /CMM (1.8-8.9); PLATELET COUNT (AUTO) 275 /CMM (150-450); RED BLOOD CELL COUNT(AUTO) 4.22 MIL/uL (4.0-5.2); WHITE BLOOD COUNT (AUTO) 5.8 K/uL (4.3-11.0)
--- NOTE | 2020-09-07 08:52 | NUR ---
ADIA FROM LAB CALLED BLOOD SPECIMEN HEMOLYZED.
--- NOTE | 2020-09-07 08:53 | NUR ---
Patient is back from CT in stable condition.
[2020-09-07 09:34] LABS: BILIRUBIN,URINE Negative (NEGATIVE); COLOR,URINE YELLOW (YELLOW); LEUKOCYTE ESTERASE ,URINE Negative (NEGATIVE); NITRITE, URINE Negative (NEGATIVE); PROTEIN,URINE Negative (NEGATIVE); UGLUCOSE Negative (NEGATIVE); UROBILINOGEN,URINE 0.2 EU/dL (0.2)
[2020-09-07 09:38] LABS: ALBUMIN 3.5 g/dL (3.4-5.0); BILIRUBIN,DIRECT 0.1 mg/dL (0.0-0.2); BILIRUBIN,TOTAL 0.3 mg/dL (0.2-1.0); CALCIUM, SERUM 8.6 mg/dL (8.5-10.1); CREATININE 0.8 mg/dL (0.6-1.3); POTASSIUM 4.3 mmol/L (3.5-5.1); TOTAL PROTEIN, SERUM 6.7 g/dL (6.4-8.2)
[2020-09-07 10:01] VITALS: BP 124/76
--- NOTE | 2020-09-07 10:02 | NUR ---
Patient discharged to home in stable condition. Written and verbal after care instructions given. Patient verbalizes understanding of instruction. The patient left ER in stable condition.
== END | disposition home or self-care (01) ==
LOC: ER 08:07
DX: K42.9 Umbilical hernia without obstruction or gangrene (principal); I10 Essential (primary) hypertension; E11.9 Type 2 diabetes mellitus without complications; E78.00 Pure hypercholesterolemia, unspecified; Z98.890 Other specified postprocedural states; Z60.2 Problems related to living alone; Z79.899 Other long term (current) drug therapy; Z79.84 Long term (current) use of oral hypoglycemic drugs
CPT/HCPCS: 36415; 80048-TC; 80076-TC; 83690-TC; 85025-TC

== ENCOUNTER 2020-11-25 13:45 | Emergency (ER) | payer MEDICARE, OTHER ==
[~2020-11-25] VITALS: Ht 167.6 cm; Wt 97.5 kg
[2020-11-25 13:52] VITALS: BP 135/69
--- NOTE | 2020-11-25 14:00 | NUR ---
LEFT FOOT SWELLING AND BLISTERS X 2 WEEKS. RATES LEFT FOOT PAIN 5/10. DENIES SOB. RESPIRATION REGULAR AND UNLABORED. WILL CONTINUE TO MONITOR THE PATIENT.
== END 2020-11-25 15:55 | disposition home or self-care (01) ==
LOC: ER 13:45
DX: M19.072 Primary osteoarthritis, left ankle and foot (principal); R22.42 Localized swelling, mass and lump, left lower limb; I10 Essential (primary) hypertension; E11.9 Type 2 diabetes mellitus without complications; E78.00 Pure hypercholesterolemia, unspecified; F17.200 Nicotine dependence, unspecified, uncomplicated; Z98.890 Other specified postprocedural states; Z60.2 Problems related to living alone; Z79.899 Other long term (current) drug therapy; Z79.84 Long term (current) use of oral hypoglycemic drugs
CPT/HCPCS: 73610-TC; 93971-TC

== ENCOUNTER 2021-07-09 13:06 | Outpatient (CLI) | payer MEDICARE, OTHER | END 2021-07-09 23:59 | disposition home or self-care (01) | LOC: RT 13:06 | PROVIDERS: ATTEND Internal Medicine | DX: Z01.818 Encounter for other preprocedural examination (principal) ==

== ENCOUNTER 2021-12-29 22:17 | Inpatient (IN) | payer MEDICARE, OTHER ==
[~2021-12-29] VITALS: Ht 167.6 cm; Wt 97.7 kg
--- NOTE | 2021-12-29 22:30 | NUR ---
[id number] FROM HOME C/O FEELING WEAK AND FELT LIKE PASSING OUT AT HOME TRYING TO GET OF CHAIR, ROLLED LEFT ANKLE. NO DEFORMITY NOTED AT THIS TIME. PT A/OX4. TOLERATING R/A WELL WITH NO SOB. CONNECTED PT TO POX AND MONITOR. SAFETY MEASURES IN PLACE.
--- NOTE | 2021-12-29 22:38 | NUR ---
POC BS 160
--- NOTE | 2021-12-29 22:49 | NUR ---
blood drawn and sent to lab
--- NOTE | 2021-12-29 22:49 | NUR ---
LAC #20G S/L. BLOOD AND COVID SWAB COLLECTED AND SENT TO LAB.
--- NOTE | 2021-12-29 22:56 | NUR ---
taken to radiology
[2021-12-29] MEDS ORDERED: IV NS 0.9% 1,000 ML BAG IV ONE (23:00)
[2021-12-29 23:04] LABS: BASOPHILS # (AUTO) 0.1 K/uL (0.0-0.2); BASOPHILS % (AUTO) 1.4 % (0.0-2.0); EOSINOPHILS % (AUTO) 1.7 % (0.0-6.0); HEMATOCRIT 36 % (33-45); HEMOGLOBIN 11.8 g/dL (11.5-14.8); LYMPHOCYTES # (AUTO) 2.2 K/uL (0.8-4.8); LYMPHOCYTES % (AUTO) 33.7 % (20.0-44.0); MEAN CORPUSCULAR HGB CONC 33 g/dl (31.0-36.0); MEAN CORPUSCULAR VOLUME 86 fL (82-100); MONOCYTES # (AUTO) 0.6 K/uL (0.1-1.30); MONOCYTES % (AUTO) 8.8 % (2.0-12.0); NEUTROPHILS # (AUTO) 3.6 K/uL (1.8-8.9); NEUTROPHILS % (AUTO) 54.4 % (43.0-81.0); PLATELET COUNT (AUTO) 330 K/uL (150-450); RED BLOOD CELL COUNT(AUTO) 4.18 MIL/uL (4.0-5.2); WHITE BLOOD COUNT (AUTO) 6.6 K/uL (4.3-11.0)
--- NOTE | 2021-12-29 23:51 | NUR ---
FOLLOWED UP WITH LAB REGARDING CHEMISTRY
[2021-12-30 00:01] LABS: ALANINE AMINOTRANSFERASE 15 U/L (12-78); ALBUMIN 3.2 g/dL (3.4-5.0); ALKALINE PHOSPHATASE 91 U/L (46-116); ASPARTATE AMINOTRANSFERASE 16 U/L (15-37); BILIRUBIN,DIRECT 0.1 mg/dL (0.0-0.2); BILIRUBIN,TOTAL 0.3 mg/dL (0.2-1.0); CALCIUM, SERUM 9.2 mg/dL (8.5-10.1); CARBON DIOXIDE 27 mmol/L (21-32); CHLORIDE 104 mmol/L (98-107); GLUCOSE 156 mg/dL (74-106); POTASSIUM 3.1 mmol/L (3.5-5.1); SODIUM SERUM 140 mmol/L (136-145); TOTAL PROTEIN, SERUM 6.8 g/dL (6.4-8.2); UREA NITROGEN, BLOOD 9 mg/dL (7-18)
--- NOTE | 2021-12-30 00:23 | NUR ---
Pt still unable to give urine sample. MD walker
[2021-12-30] MEDS ORDERED: POTASSIUM CHLORIDE 20 MEQ TAB.PRT.SR PO ONE ×2 (00:30→00:42)
--- NOTE | 2021-12-30 01:15 | NUR ---
urine sent to lab
[2021-12-30] MEDS ORDERED: ACETAMINOPHEN 325 MG TABLET PO PRN (01:30)
[2021-12-30] MEDS ORDERED: MORPHINE SULFATE INJ 2 MG/ML DISP.SYRIN IV PRN (01:30)
[2021-12-30] MEDS ORDERED: MAG HYDROX/AL HYDROX/SIMETH 30 ML UDC PO PRN (01:30)
[2021-12-30] MEDS ORDERED: ONDANSETRON HCL/PF 4 MG/2 ML VIAL IVP PRN (01:30)
[2021-12-30] MEDS ORDERED: Z GUARD REMEDY 4 OZ OINT TP PRN (01:30)
[2021-12-30] MEDS ORDERED: MAGNESIUM HYDROXIDE 30 ML UDC PO PRN (01:30)
[2021-12-30] MEDS ORDERED: TEMAZEPAM 15 MG CAPSULE PO PRN (01:30)
[2021-12-30] MEDS ORDERED: INSULIN REGULAR, HUMAN 100 UNIT/ML 3 ML VIAL SQ PRN (01:30)
[2021-12-30] MEDS ORDERED: DEXTROSE 50%-WATER 50 ML DISP.SYRIN IV PRN ×2 (01:30)
--- NOTE | 2021-12-30 01:30 | NUR ---
EMT AT PT'S BEDSIDE APPLYING SHIMON WRAP TO LEFT ANKLE
[2021-12-30 01:59] LABS: BILIRUBIN,URINE NEGATIVE (NEGATIVE); COLOR,URINE YELLOW (YELLOW); LEUKOCYTE ESTERASE ,URINE NEGATIVE (NEGATIVE); NITRITE, URINE NEGATIVE (NEGATIVE); PROTEIN,URINE NEGATIVE (NEGATIVE); UGLUCOSE NEGATIVE (NEGATIVE); UROBILINOGEN,URINE 0.2 EU/dL (0.2)
[2021-12-30] MEDS ORDERED: HYDROCODONE/APAP 5/325MG TABLET ONE ×2 (02:53→08:21)
[2021-12-30] MEDS: HYDROCODONE/APAP 5/325MG TABLET PO PRN ×3 (02:55→14:21)
--- NOTE | 2021-12-30 02:59 | NUR ---
US AT BEDSIDE
[2021-12-30] MEDS ORDERED: ACETAMINOPHEN 325 MG TABLET ONE (03:44)
[2021-12-30] MEDS: IV NS 0.9% 1,000 ML IV PRN (04:15)
--- NOTE | 2021-12-30 07:23 | NUR ---
gave report to gallo Batista FOR HUNTER
[2021-12-30] MEDS: BLOOD SUGAR DIAGNOSTIC 1 EACH STRIP IN SCH ×4 (07:30→21:35)
[2021-12-30] MEDS ORDERED: BLOOD SUGAR DIAGNOSTIC 1 EACH STRIP IN SCH (07:30)
[2021-12-30] MEDS ORDERED: PANTOPRAZOLE 40 MG TABLET.DR PO SCH ×2 (07:30→09:54)
--- NOTE | 2021-12-30 07:57 | NUR ---
ASSISTED TO THE RESTROOM USING A WHEELCHAIR
[2021-12-30] MEDS ORDERED: PANTOPRAZOLE 40 MG TABLET.DR PO ONE (08:21)
--- NOTE | 2021-12-30 08:29 | NUR ---
BREAKFAST TRAY PROVIDED, TOLERATED WELL
[2021-12-30] MEDS ORDERED: CILO100T PO (08:46)
[2021-12-30] MEDS ORDERED: AMLO-212 PO (08:46)
[2021-12-30] MEDS ORDERED: CLOP75TA15 PO (08:46)
[2021-12-30] MEDS ORDERED: OMEP40CA21 PO (08:46)
[2021-12-30] MEDS ORDERED: GABA300C PO (08:46)
[2021-12-30] MEDS ORDERED: SEMA14TA PO (08:46)
--- NOTE | 2021-12-30 08:51 | NUR ---
GOT BED 320-1
--- NOTE | 2021-12-30 09:01 | NUR ---
REPORT GIVEN TO JANIS RIVERA FOR HUNTER
--- NOTE | 2021-12-30 09:33 | NUR ---
TRANSFERRED TO BED 320 IN STABLE CONDITION
--- NOTE | 2021-12-30 09:50 | NUR ---
ADMISSION RN NOTES ADMITTED A 61 Y/O FEMALE TO UNIT AT 0945 VIA GURNEY ACCOMPANIED BY Tammy RIVERA, SUSANA WITH DX OF SYNCOPE. PT A/O X4, ABLE TO MAKE NEEDS KNOWN. PT ORIENTED TO STAFF AND UNIT. V/S TAKE AND RECORDED. PT ON RA, TOLERATING WELL. BREATHING EVEN AND UNLABORED. LUNGS CLEAR BILATERALLY ON AUSCULTATION. NOT IN ANY SIGN OF RESPIRATORY DISTRESS. PT PLACED ON CARDIAC TELE MONITOR WITH CURRENT READING OF SINUS RHYTHM, HR 84. NO C/O CARDIAC DISTRESS VOICED AT THIS TIME. ABDOMEN SOFT AND NON-TENDER. BOWEL SOUNDS PRESENT IN ALL FOUR QUADRANTS. SKIN IS INTACT, DRY, AND WARM. NO SKIN ISSUES NOTED. IV ACCESS IN LAC G#20, INTACT AND PATENT. SAFETY MEASURES INIATED: BED IN LOWEST AND LOCKED POSITION, SIDE RAILS UPX3, BED ALARM ON, AND CALL LIGHT WITHIN REACH. WILL CONTINUE TO MONITOR PATIENT.
[2021-12-30] MEDS: GABAPENTIN 300 MG CAPSULE PO SCH ×4 (11:52→20:09)
[2021-12-30] MEDS: AMLODIPINE BESYLATE 5 MG TABLET PO SCH (11:53)
[2021-12-30] MEDS: CILOSTAZOL 100 MG TABLET PO SCH ×2 (11:53→17:14)
[2021-12-30] MEDS: FAMOTIDINE (20 MG) 20 MG TABLET PO SCH ×2 (11:53→17:14)
[2021-12-30] MEDS: ESCITALOPRAM OXALATE (10 MG) 10 MG TABLET PO SCH (11:53)
[2021-12-30] MEDS: ENOXAPARIN SODIUM 40 MG/0.4 ML DISP.SYRIN SQ SCH (11:56)
[2021-12-30] MEDS: INSULIN REGULAR, HUMAN 100 UNIT/ML 3 ML VIAL SQ PRN ×2 (12:34→17:04)
[2021-12-30] MEDS: CLOPIDOGREL BISULFATE 75 MG TABLET PO SCH (12:37)
[2021-12-30 13:23] LABS: THYROID STIMULATING HORMONE 0.985 uIU/mL (0.358-3.74)
--- NOTE | 2021-12-30 18:48 | NUR ---
FOREIGN LANGUAGE PROFESSOR CLOSING NOTES PT IN BED AWAKE, WATCHING TV. PT A/O X4, PT ABLE TO MAKE NEEDS KNOWN. ON RA, TOLERATING WELL. BREATHING EVEN AND UNLABORED. NOT IN ANY SIGN OF RESPIRATORY DISTRESS. PT ON CARDIAC TELE MONITOR WITH CURRENT READING OF SINUS WITH OCCASIONAL PVC'S AND PAC'S DURING SHIFT, HR 82. NO C/O CARDIAC DISTRESS VOICED AT THIS TIME. IV ACCESS IN LAC G#20, SALINE LOCK, INTACT AND PATENT. ALL NEEDS ATTENDED. KEPT CLEAN AND COMFORTABLE. SAFETY MEASURES INIATED: BED IN LOWEST AND LOCKED POSITION, SIDE RAILS UPX3, BED ALARM ON, AND CALL LIGHT WITHIN REACH. WILL ENDORSE TO PEDIATRICS TEACHER NURSE FOR HUNTER.
--- NOTE | 2021-12-30 19:51 | NUR ---
ACCOUNTANT HELPER CLOSING NOTES RECEIVED PT IN BED AAOX4 ON RA, TOLERATING WELL NO SIGN SOB/DISTRESS NOTED.BREATHING EVEN AND UNLABORED.IV ACCESS IN LAC G#20, SALINE LOCK, INTACT AND PATENT.SAFETY MEASURES INPLACE.BED IN LOWEST AND LOCKED POSITION, SIDE RAILS UPX3, BED ALARM ON, AND CALL LIGHT WITHIN REACH. WILL CONTINUE TO MONITOR.
[2021-12-30 20:00] VITALS: BP 137/69
[2021-12-31] VITALS: BP 108/52
[2021-12-31 00:19] VITALS: BP 108/62
[2021-12-31] MEDS: IV NS 0.9% 1,000 ML IV PRN (03:58)
[2021-12-31 04:00] VITALS: BP 122/53
[2021-12-31 06:23] LABS: BASOPHILS % (AUTO) 0.5 % (0.0-2.0); EOSINOPHILS % (AUTO) 1.1 % (0.0-6.0); HEMATOCRIT 36 % (33-45); HEMOGLOBIN 11.7 g/dL (11.5-14.8); LYMPHOCYTES # (AUTO) 1.7 K/uL (0.8-4.8); LYMPHOCYTES % (AUTO) 26.7 % (20.0-44.0); MEAN CORPUSCULAR HGB CONC 33 g/dl (31.0-36.0); MEAN CORPUSCULAR VOLUME 86 fL (82-100); MONOCYTES # (AUTO) 0.6 K/uL (0.1-1.30); MONOCYTES % (AUTO) 9.8 % (2.0-12.0); NEUTROPHILS % (AUTO) 61.9 % (43.0-81.0); PLATELET COUNT (AUTO) 327 K/uL (150-450); RED BLOOD CELL COUNT(AUTO) 4.14 MIL/uL (4.0-5.2); WHITE BLOOD COUNT (AUTO) 6.5 K/uL (4.3-11.0)
--- NOTE | 2021-12-31 06:38 | NUR ---
CARPET REPAIRER CLOSING NOTES PT IN BED AAOX4 ON RM AIR TOLERATING WELL NO SIGN SOB/DISTRESS NOTED.BREATHING EVEN AND UNLABORED.ALL MEDS GIVEN ORDER.IV ACCESS IN LAC G#20, SALINE LOCK, INTACT AND PATENT.ALL NEEDS ATTENDED,SAFETY MEASURES INPLACE.BED IN LOWEST AND LOCKED POSITION, SIDE RAILS UPX3, BED ALARM ON, AND CALL LIGHT WITHIN REACH. WILL ENDORSED TO NEXT SHIFT.
[2021-12-31] MEDS: BLOOD SUGAR DIAGNOSTIC 1 EACH STRIP IN SCH ×2 (06:49→12:42)
--- NOTE | 2021-12-31 07:00 | NUR ---
TOOTH INSPECTOR OPENING NOTES PATIENT LAYING IN BED, A/O X 4, ABLE TO MAKE NEEDS KNOWN. TOLERATING WELL ON ROOM AIR WITH NO S/SS RESPIRATORY DISTRESS. NO COMPLAINTS OF PAIN OR DISCOMFORT AT THIS TIME. TELE MONITOR IN PLACE READING SR 87. LAC # 20 G SL CLEAN, INTACT, AND FLUSHING WELL. SAFETY MEASURES IN PLACE: BED IN LOWEST LOCKED POSITION, SIDE RAILS UP X 2, CALL LIGHT WITHIN REACH. WILL CONTINUE TO MONITOR.
[2021-12-31] MEDS ORDERED: PANTOPRAZOLE 40 MG TABLET.DR PO SCH (07:30)
[2021-12-31 07:33] LABS: ALBUMIN 3.2 g/dL (3.4-5.0); BILIRUBIN,TOTAL 0.5 mg/dL (0.2-1.0); CREATININE 0.8 mg/dL (0.6-1.3); MAGNESIUM 2.1 mg/dL (1.8-2.4); PHOSPHORUS 4.3 mg/dL (2.5-4.9); POTASSIUM 3.2 mmol/L (3.5-5.1); TOTAL PROTEIN, SERUM 6.9 g/dL (6.4-8.2)
[2021-12-31 08:30] LABS: THYROID STIMULATING HORMONE 0.731 uIU/mL (0.358-3.74)
[2021-12-31] MEDS: ESCITALOPRAM OXALATE (10 MG) 10 MG TABLET PO SCH (08:38)
[2021-12-31 08:39] VITALS: BP 125/73
[2021-12-31] MEDS: CLOPIDOGREL BISULFATE 75 MG TABLET PO SCH (08:39)
[2021-12-31] MEDS: AMLODIPINE BESYLATE 5 MG TABLET PO SCH (08:39)
[2021-12-31] MEDS: POTASSIUM CHLORIDE 20 MEQ TAB.PRT.SR PO SCH ×3 (08:39→10:24)
[2021-12-31] MEDS: GABAPENTIN 300 MG CAPSULE PO SCH ×2 (08:39→13:32)
[2021-12-31] MEDS: CILOSTAZOL 100 MG TABLET PO SCH (08:39)
[2021-12-31] MEDS: FAMOTIDINE (20 MG) 20 MG TABLET PO SCH (08:39)
[2021-12-31] MEDS: ENOXAPARIN SODIUM 40 MG/0.4 ML DISP.SYRIN SQ SCH (09:11)
[2021-12-31] MEDS ORDERED: SEMAGLUTIDE PO SCH (14:00)
--- NOTE | 2021-12-31 14:40 | NUR ---
MS DOCUMENTATION NURSE NOTES PATIENT MADE AWARE OF MD DISCHARGE ORDERS AND INSTRUCTIONS. PATIENT VERBALIZED UNDERSTANDING OF MD DISCHARGE INSTRUCTIONS AND SIGNED MD DISCHARGE INSTRUCTIONS SHEET. PATIENT VERBALIZED POSSESSION OF ALL BELONGINGS AND SIGNED BELONGINGS SHEET. PATIENT MEDICATIONS PROVIDED TO HER FROM PHARMACY. IV LINES AND ID BANDS REMOVED. PATIENT TRANSPORTED FROM UNIT VIA WHEELCHAIR ACCOMPANIED BY [employer] BUSINESS TEACHER FOR TRANSPORT HOME VIA PRIVATE CAR. ALL NEEDS MET. PATIENT STABLE AT TIME OF DISCHARGE.
== END 2021-12-31 14:43 | disposition home or self-care (01) | DRG 641 ==
LOC: ER 22:25 → TRANSITION 12-30 02:04 → TELE 12-30 09:01 → MED 12-31 09:59
PROVIDERS: ADMIT Internal Medicine; ATTEND Internal Medicine
DX: E86.0 Dehydration (principal); S93.402A Sprain of unspecified ligament of left ankle, initial encounter; W19.XXXA Unspecified fall, initial encounter; X50.1XXA Overexertion from prolonged static or awkward postures, initial encounter; Y92.009 Unspecified place in unspecified non-institutional (private) residence as the place of occurrence of the external cause; E87.6 Hypokalemia; E11.9 Type 2 diabetes mellitus without complications; I10 Essential (primary) hypertension; E66.9 Obesity, unspecified; Z98.84 Bariatric surgery status; Z79.899 Other long term (current) drug therapy; E78.5 Hyperlipidemia, unspecified; F17.210 Nicotine dependence, cigarettes, uncomplicated; Z79.84 Long term (current) use of oral hypoglycemic drugs; Z82.3 Family history of stroke
CPT/HCPCS: 36415; 70450-TC; 71045-TC; 73610-TC; 80048-TC; 80053-TC; 80061-TC; 80076-TC; 82378; 82962-TC; 83735-TC; 84100-TC; 84439-TC; 84443-TC; 84484-TC; 85025-TC; 85730-TC; 87081-TC; 93307-TC; 97116-TC; 97530-TC; C9803; G0378; G0480; J1650; J1815; J2270; J2405; J7030

== ENCOUNTER 2022-03-10 07:47 | Emergency (ER) | payer MEDICARE, OTHER ==
[~2022-03-10] VITALS: Ht 167.6 cm; Wt 93.9 kg
[~2022-03-10 07:47] MED LIST changes: +AMLO-212 PO; -BENA5TAB5 PO; +CILO100T PO; +CLOP75TA15 PO; -ERGO500014 PO; +GABA300C PO; -HYDR-3974 PO; -METF-440 PO; +OMEP40CA21 PO; -ROSU40TA23 PO; +SEMA14TA PO
--- NOTE | 2022-03-10 08:00 | NUR ---
RECEIVED PT FROM HOME C/O LT Flanck pain for 5 days awke and alert respiration spont and easy voding AGUSTIN WHITE SENT TO LAB
--- NOTE | 2022-03-10 08:05 | NUR ---
EXAMINE BY DR. SÁNCHEZ
[2022-03-10] MEDS ORDERED: KETOROLAC TROMETHAMINE INJ 30 MG/ML VIAL ONE (08:16)
--- NOTE | 2022-03-10 08:30 | NUR ---
INSERTED ANGO CATHTER G 20 ON RT HAND BLOOD DROW AND SENT TO LAB
[2022-03-10 08:42] LABS: BASOPHILS # (AUTO) 0.1 K/uL (0.0-0.2); EOSINOPHILS % (AUTO) 2.2 % (0.0-6.0); HEMATOCRIT 36 % (33-45); HEMOGLOBIN 11.4 g/dL (11.5-14.8); LYMPHOCYTES # (AUTO) 1.6 K/uL (0.8-4.8); LYMPHOCYTES % (AUTO) 31.4 % (20.0-44.0); MEAN CORPUSCULAR HGB CONC 32 g/dl (31.0-36.0); MEAN CORPUSCULAR VOLUME 87 fL (82-100); MONOCYTES # (AUTO) 0.7 K/uL (0.1-1.30); MONOCYTES % (AUTO) 13.7 % (2.0-12.0); NEUTROPHILS # (AUTO) 2.6 K/uL (1.8-8.9); NEUTROPHILS % (AUTO) 50.7 % (43.0-81.0); PLATELET COUNT (AUTO) 372 K/uL (150-450); WHITE BLOOD COUNT (AUTO) 5.1 K/uL (4.3-11.0)
[2022-03-10] MEDS: KETOROLAC TROMETHAMINE INJ 30 MG/ML VIAL IV ONE (08:45)
[2022-03-10 08:57] LABS: CALCIUM, SERUM 8.8 mg/dL (8.5-10.1); CREATININE 0.9 mg/dL (0.6-1.3); POTASSIUM 3.4 mmol/L (3.5-5.1)
--- NOTE | 2022-03-10 08:58 | NUR ---
UA SENT TO LAB
--- NOTE | 2022-03-10 09:00 | NUR ---
TO CT SCAN
[2022-03-10 09:10] LABS: BILIRUBIN,URINE NEGATIVE (NEGATIVE); LEUKOCYTE ESTERASE ,URINE NEGATIVE (NEGATIVE); NITRITE, URINE NEGATIVE (NEGATIVE); PROTEIN,URINE TRACE mg/dl (NEGATIVE); UGLUCOSE NEGATIVE (NEGATIVE); UROBILINOGEN,URINE 0.2 EU/dL (0.2)
[2022-03-10 09:14] LABS: COLOR,URINE YELLOW (YELLOW)
[2022-03-10 09:51] LABS: ALBUMIN 3.3 g/dL (3.4-5.0); BILIRUBIN,TOTAL 0.1 mg/dL (0.2-1.0); TOTAL PROTEIN, SERUM 6.8 g/dL (6.4-8.2)
[2022-03-10] MEDS ORDERED: PRED50TA PO (10:03)
[2022-03-10] MEDS ORDERED: METH-647 PO (10:03)
[2022-03-10] MEDS ORDERED: HYDR-3972 PO (10:03)
--- NOTE | 2022-03-10 10:43 | NUR ---
Patient discharged to home in stable condition. Written and verbal after care instructions given. Patient verbalizes understanding of instruction. D/C HOME STABLE CONDITION PAIN 0/10
[2022-03-10 11:01] VITALS: BP 157/61
== END 2022-03-10 11:02 | disposition home or self-care (01) ==
LOC: ER 07:55
DX: M54.42 Lumbago with sciatica, left side (principal); I10 Essential (primary) hypertension; E11.9 Type 2 diabetes mellitus without complications; E78.00 Pure hypercholesterolemia, unspecified; F17.200 Nicotine dependence, unspecified, uncomplicated; Z60.2 Problems related to living alone; Z79.899 Other long term (current) drug therapy
CPT/HCPCS: 99284; 96374; 72131; 85025; 80048; 83690; 80076; 81003; 36415; J1885

== ENCOUNTER 2023-02-25 16:07 | Emergency (ER) | payer MEDICARE, OTHER ==
[~2023-02-25] VITALS: Ht 167.6 cm; Wt 99.5 kg
[~2023-02-25 16:07] MED LIST changes: -FAMO-131 PO; +HYDR-3972 PO; +METH-647 PO; +PRED50TA PO
[2023-02-25] MEDS ORDERED: IV NS 0.9% 1,000 ML BAG IV ONE (16:30)
[2023-02-25 16:43] LABS: BASOPHILS % (AUTO) 0.5 % (0.0-2.0); EOSINOPHILS # (AUTO) 0.1 K/uL (0.0-0.7); EOSINOPHILS % (AUTO) 1.2 % (0.0-6.0); HEMATOCRIT 34 % (33-45); HEMOGLOBIN 10.7 g/dL (11.5-14.8); LYMPHOCYTES % (AUTO) 37.2 % (20.0-44.0); MEAN CORPUSCULAR HEMOGLOBIN 23 PG (26.0-33.0); MEAN CORPUSCULAR HGB CONC 31 g/dl (31.0-36.0); MEAN CORPUSCULAR VOLUME 75 fL (82-100); MONOCYTES # (AUTO) 0.6 K/uL (0.1-1.30); MONOCYTES % (AUTO) 7.2 % (2.0-12.0); NEUTROPHILS # (AUTO) 4.4 K/uL (1.8-8.9); NEUTROPHILS % (AUTO) 53.9 % (43.0-81.0); PLATELET COUNT (AUTO) 403 K/uL (150-450); RED BLOOD CELL COUNT(AUTO) 4.56 MIL/uL (4.0-5.2); RED CELL DISTRIBUTION WIDTH 18.7 % (11.5-15.0); WHITE BLOOD COUNT (AUTO) 8.1 K/uL (4.3-11.0)
[2023-02-25 17:08] LABS: CALCIUM, SERUM 8.9 mg/dL (8.5-10.1); CARBON DIOXIDE 22 mmol/L (21-32); CHLORIDE 105 mmol/L (98-107); GLUCOSE 150 mg/dL (74-106); POTASSIUM 3.7 mmol/L (3.5-5.1); SODIUM SERUM 137 mmol/L (136-145); UREA NITROGEN, BLOOD 13 mg/dL (7-18)
[2023-02-25 17:15] LABS: ALANINE AMINOTRANSFERASE 46 U/L (12-78); ALBUMIN 3.8 g/dL (3.4-5.0); ALKALINE PHOSPHATASE 162 U/L (46-116); ASPARTATE AMINOTRANSFERASE 66 U/L (15-37); BILIRUBIN,DIRECT 0.2 mg/dL (0.0-0.2); BILIRUBIN,TOTAL 0.5 mg/dL (0.2-1.0); LIPASE 263 U/L (73-393); TOTAL PROTEIN, SERUM 7.6 g/dL (6.4-8.2)
[2023-02-25] MEDS ORDERED: IOHEXOL-300 100 ML VIAL IV ONE ×2 (17:15→17:26)
[2023-02-25] MEDS ORDERED: IV NS 0.9% 250 ML IV ONE (17:26)
[2023-02-25] MEDS ORDERED: CT SWABBABLE VALVE TRANS SET 1 EA INFUS.SET MC ONE (17:26)
[2023-02-25 17:31] LABS: LYMPHOCYTES % (MANUAL) 36 % (16-48); MONOCYTES % (MANUAL) 6 % (0-11.0); NEUTROPHILS % (MANUAL) 58 (42-76); PLATELET ESTIMATE ADEQUATE
[2023-02-25 19:18] VITALS: BP 163/81; TEMP 97.9; O2SAT 98
== END 2023-02-25 21:18 | disposition left against medical advice (07) ==
LOC: ER 16:13
DX: R10.9 Unspecified abdominal pain (principal); I10 Essential (primary) hypertension; E78.5 Hyperlipidemia, unspecified; E11.9 Type 2 diabetes mellitus without complications; E78.00 Pure hypercholesterolemia, unspecified; F17.200 Nicotine dependence, unspecified, uncomplicated; Z60.2 Problems related to living alone; Z79.899 Other long term (current) drug therapy
CPT/HCPCS: 99285; 74177; 96360; 71045; 93005; 85025; 80048; 83690; 80076; 36415; 84484; 85007; J7030; J7050; Q9967 ×2

== ENCOUNTER 2023-02-27 13:32 | Inpatient (IN) | payer MEDICARE, OTHER ==
[~2023-02-27] VITALS: Ht 167.6 cm; Wt 97.5 kg
[2023-02-27 14:23] LABS: BASOPHILS # (AUTO) 0.1 K/uL (0.0-0.2); BASOPHILS % (AUTO) 1.3 % (0.0-2.0); EOSINOPHILS # (AUTO) 0.1 K/uL (0.0-0.7); EOSINOPHILS % (AUTO) 1.5 % (0.0-6.0); HEMATOCRIT 32 % (33-45); LYMPHOCYTES # (AUTO) 1.3 K/uL (0.8-4.8); MEAN CORPUSCULAR HEMOGLOBIN 23 PG (26.0-33.0); MEAN CORPUSCULAR HGB CONC 31 g/dl (31.0-36.0); MEAN CORPUSCULAR VOLUME 76 fL (82-100); MONOCYTES # (AUTO) 0.9 K/uL (0.1-1.30); MONOCYTES % (AUTO) 12.9 % (2.0-12.0); NEUTROPHILS # (AUTO) 4.3 K/uL (1.8-8.9); NEUTROPHILS % (AUTO) 65.3 % (43.0-81.0); PLATELET COUNT (AUTO) 276 K/uL (150-450); RED BLOOD CELL COUNT(AUTO) 4.26 MIL/uL (4.0-5.2); RED CELL DISTRIBUTION WIDTH 18.6 % (11.5-15.0); WHITE BLOOD COUNT (AUTO) 6.6 K/uL (4.3-11.0)
[2023-02-27 14:39] LABS: CREATININE 1.2 mg/dL (0.6-1.3); POTASSIUM 3.4 mmol/L (3.5-5.1)
[2023-02-27 14:43] LABS: PARTIAL THROMBOPLASTIN TIME 32.5 SEC (24.3-34.3); PROTHROMBIN TIME 10.5 SECS (9.2-11.1)
[2023-02-27 14:44] LABS: ALBUMIN 3.5 g/dL (3.4-5.0); BILIRUBIN,DIRECT 0.1 mg/dL (0.0-0.2); BILIRUBIN,TOTAL 0.3 mg/dL (0.2-1.0); TOTAL PROTEIN, SERUM 7.5 g/dL (6.4-8.2)
[2023-02-27 15:05] LABS: APPEARANCE,URINE CLEAR (CLEAR); BILIRUBIN,URINE 1+ (NEGATIVE); BLOOD, URINE NEGATIVE Ery/uL (NEGATIVE); COLOR,URINE YELLOW (YELLOW); KETONES,URINE TRACE mg/dL (NEGATIVE); LEUKOCYTE ESTERASE ,URINE NEGATIVE (NEGATIVE); NITRITE, URINE NEGATIVE (NEGATIVE); PROTEIN,URINE TRACE mg/dl (NEGATIVE); UGLUCOSE NEGATIVE (NEGATIVE)
[2023-02-27 15:09] LABS: ADD URINE CULTURE YES; BACTERIA,URINE 2+ /HPF (None Seen); RBC,URINE 0-2 /HPF (0-2); WBC,URINE 0-2 /HPF (0-3)
[2023-02-27 15:10] LABS: MUCUS,URINE Few /LPF (None Seen)
[2023-02-27] MEDS ORDERED: GABA300C PO (15:47)
[2023-02-27] MEDS ORDERED: CILO100T PO (15:47)
[2023-02-27] MEDS ORDERED: ACET-2605 PO (15:47)
[2023-02-27] MEDS ORDERED: METH500T6 PO (15:47)
[2023-02-27] MEDS ORDERED: SEMA14TA PO (15:47)
[2023-02-27] MEDS ORDERED: EZET10TA16 PO (15:47)
[2023-02-27] MEDS ORDERED: DICL100G26 TP (15:47)
[2023-02-27] MEDS ORDERED: ESCI20TA PO (15:47)
[2023-02-27] MEDS ORDERED: HYDR-4303 PO (15:47)
[2023-02-27] MEDS ORDERED: SENN-261 PO (15:47)
[2023-02-27] MEDS ORDERED: ROSU40TA PO (15:47)
[2023-02-27] MEDS ORDERED: CLOP75TA15 PO (15:47)
[2023-02-27] MEDS ORDERED: CEFTRIAXONE 1GM BAG (ER ONLY) 1 GM/50 ML PIGGYBACK IV ONE (16:00)
[2023-02-27] MEDS ORDERED: CEFTRIAXONE 1GM BAG (ER ONLY) 50 ML IV ONE (16:25)
[2023-02-27] MEDS ORDERED: KETOROLAC TROMETHAMINE 15 MG/ML VIAL ONE (16:26)
[2023-02-27] MEDS ORDERED: KETOROLAC TROMETHAMINE INJ 30 MG/ML VIAL IV ONE (16:30)
[2023-02-27] MEDS ORDERED: ACETAMINOPHEN 325 MG TABLET PO PRN (17:00)
[2023-02-27] MEDS ORDERED: ZOLPIDEM TARTRATE 5 MG TABLET PO PRN (17:00)
[2023-02-27] MEDS ORDERED: Z GUARD REMEDY 4 OZ OINT TP PRN (17:00)
[2023-02-27] MEDS ORDERED: ONDANSETRON HCL/PF 4 MG/2 ML VIAL IVP PRN (17:00)
[2023-02-27] MEDS ORDERED: MAG HYDROX/AL HYDROX/SIMETH 30 ML UDC PO PRN (17:00)
[2023-02-27] MEDS ORDERED: MAGNESIUM HYDROXIDE 30 ML UDC PO PRN (17:00)
[2023-02-27] MEDS ORDERED: MORPHINE SULFATE INJ 4 MG/ML DISP.SYRIN ONE (17:21)
[2023-02-27] MEDS ORDERED: MORPHINE SULFATE INJ 2 MG/ML DISP.SYRIN IV ONE (17:30)
[2023-02-27] MEDS ORDERED: PIPERACILLIN /TAZOBACTAM 2.25 G in IV D5W 50 ML IV SCH (18:00)
[2023-02-27 20:00] VITALS: BP 119/60; TEMP 97.7; O2SAT 94
[2023-02-27] MEDS: IV NS 0.9% 1,000 ML IV PRN (20:09)
[2023-02-28] MEDS: MORPHINE SULFATE INJ 2 MG/ML DISP.SYRIN IV PRN ×2 (00:34→14:55)
[2023-02-28] MEDS: PIPERACILLIN /TAZOBACTAM 2.25 G in IV D5W 50 ML IV SCH ×2 (02:16→08:17)
[2023-02-28 05:11] VITALS: O2SAT 94
[2023-02-28 07:15] LABS: BASOPHILS % (AUTO) 0.3 % (0.0-2.0); EOSINOPHILS # (AUTO) 0.2 K/uL (0.0-0.7); EOSINOPHILS % (AUTO) 1.4 % (0.0-6.0); HEMATOCRIT 31 % (33-45); HEMOGLOBIN 9.5 g/dL (11.5-14.8); LYMPHOCYTES % (AUTO) 8.4 % (20.0-44.0); MEAN CORPUSCULAR HEMOGLOBIN 23 PG (26.0-33.0); MEAN CORPUSCULAR HGB CONC 31 g/dl (31.0-36.0); MEAN CORPUSCULAR VOLUME 75 fL (82-100); MONOCYTES # (AUTO) 1.2 K/uL (0.1-1.30); MONOCYTES % (AUTO) 9.7 % (2.0-12.0); NEUTROPHILS % (AUTO) 80.2 % (43.0-81.0); PLATELET COUNT (AUTO) 268 K/uL (150-450); RED BLOOD CELL COUNT(AUTO) 4.14 MIL/uL (4.0-5.2); RED CELL DISTRIBUTION WIDTH 18.9 % (11.5-15.0); WHITE BLOOD COUNT (AUTO) 12.5 K/uL (4.3-11.0)
[2023-02-28] MEDS: PANTOPRAZOLE 40 MG TABLET.DR PO SCH (07:30)
[2023-02-28 07:46] LABS: CALCIUM, SERUM 8.9 mg/dL (8.5-10.1); MAGNESIUM 1.9 mg/dL (1.8-2.4); PHOSPHORUS 3.5 mg/dL (2.5-4.9); POTASSIUM 3.9 mmol/L (3.5-5.1)
[2023-02-28] MEDS ORDERED: LORATADINE 10 MG TABLET PO ONE (15:00)
[2023-02-28 16:00] VITALS: BP 148/64; TEMP 98.7; O2SAT 98
[2023-02-28] MEDS ORDERED: BISACODYL SUPP (10 MG) 10 MG/SUPP.RECT SUPP.RECT RC PRN (17:00)
[2023-02-28] MEDS: GABAPENTIN 300 MG CAPSULE PO SCH (17:23)
[2023-02-28] MEDS: METHOCARBAMOL (500MG) 500 MG TABLET PO SCH (17:23)
[2023-02-28] MEDS: EZETIMIBE 10 MG TABLET PO SCH (21:06)
[2023-02-28] MEDS: ATORVASTATIN 40 MG TABLET PO SCH (21:06)
[2023-02-28] MEDS: SENNOSIDES 8.6 MG TABLET PO SCH (21:07)
[2023-02-28] MEDS: PIPERACILLIN /TAZOBACTAM 3.375 G in IV D5W 100 ML IV SCH (21:08)
[2023-02-28 21:21] VITALS: BP 134/63; TEMP 99.7; O2SAT 94
[2023-03-01 06:23] LABS: BASOPHILS % (AUTO) 0.5 % (0.0-2.0); EOSINOPHILS # (AUTO) 0.2 K/uL (0.0-0.7); EOSINOPHILS % (AUTO) 2.6 % (0.0-6.0); HEMATOCRIT 30 % (33-45); HEMOGLOBIN 9.3 g/dL (11.5-14.8); LYMPHOCYTES # (AUTO) 1.4 K/uL (0.8-4.8); LYMPHOCYTES % (AUTO) 19.9 % (20.0-44.0); MEAN CORPUSCULAR HEMOGLOBIN 24 PG (26.0-33.0); MEAN CORPUSCULAR HGB CONC 31 g/dl (31.0-36.0); MEAN CORPUSCULAR VOLUME 75 fL (82-100); MONOCYTES # (AUTO) 1.3 K/uL (0.1-1.30); MONOCYTES % (AUTO) 18.1 % (2.0-12.0); NEUTROPHILS # (AUTO) 4.2 K/uL (1.8-8.9); NEUTROPHILS % (AUTO) 58.9 % (43.0-81.0); PLATELET COUNT (AUTO) 264 K/uL (150-450); RED BLOOD CELL COUNT(AUTO) 3.91 MIL/uL (4.0-5.2); RED CELL DISTRIBUTION WIDTH 18.4 % (11.5-15.0); WHITE BLOOD COUNT (AUTO) 7.1 K/uL (4.3-11.0)
[2023-03-01 06:37] LABS: CREATININE 0.7 mg/dL (0.6-1.3); POTASSIUM 3.2 mmol/L (3.5-5.1)
[2023-03-01 07:58] LABS: ALBUMIN 2.9 g/dL (3.4-5.0); BILIRUBIN,DIRECT 0.1 mg/dL (0.0-0.2); BILIRUBIN,TOTAL 0.3 mg/dL (0.2-1.0); TOTAL PROTEIN, SERUM 6.7 g/dL (6.4-8.2)
[2023-03-01 08:00] VITALS: BP 138/57; TEMP 96.6; O2SAT 99
[2023-03-01] MEDS ORDERED: POTASSIUM CHLORIDE 20 MEQ TAB.PRT.SR PO ONE (08:30)
[2023-03-01 08:41] LABS: ANISOCYTOSIS 1+; BASOPHILS % (MANUAL) 0 % (0.0-2.0); EOSINOPHILS % (MANUAL) 2 % (0-4); HYPOCHROMASIA 1+; LYMPHOCYTES % (MANUAL) 21 % (16-48); MONOCYTES % (MANUAL) 17 % (0-11.0); NEUTROPHILS % (MANUAL) 60 (42-76); PLATELET ESTIMATE ADEQUATE
[2023-03-01] MEDS: GABAPENTIN 300 MG CAPSULE PO SCH ×2 (08:46→17:13)
[2023-03-01] MEDS: PANTOPRAZOLE 40 MG TABLET.DR PO SCH (08:46)
[2023-03-01] MEDS: METHOCARBAMOL (500MG) 500 MG TABLET PO SCH ×2 (08:47→17:13)
[2023-03-01] MEDS: ESCITALOPRAM OXALATE (10 MG) 10 MG TABLET PO SCH (08:47)
[2023-03-01] MEDS: HYDROCODONE/APAP 5/325MG TABLET PO PRN (08:47)
[2023-03-01] MEDS: PIPERACILLIN /TAZOBACTAM 3.375 G in IV D5W 100 ML IV SCH ×2 (08:51→20:31)
[2023-03-01] MEDS ORDERED: POTASSIUM CHLORIDE 20 MEQ POWDER PACKET PO ONE (09:00)
[2023-03-01] MEDS ORDERED: Medication Not On Formulary EA (Semaglutide (Rybelsus) 14 MG) PO SCH (09:00)
[2023-03-01 16:00] VITALS: BP 153/103; TEMP 98.8; O2SAT 98
[2023-03-01 20:00] VITALS: BP 153/110; TEMP 98.2; O2SAT 98
[2023-03-01] MEDS: ATORVASTATIN 40 MG TABLET PO SCH (21:12)
[2023-03-01] MEDS: EZETIMIBE 10 MG TABLET PO SCH (21:12)
[2023-03-01] MEDS: SENNOSIDES 8.6 MG TABLET PO SCH (21:12)
[2023-03-02] MEDS: IV NS 0.9% 1,000 ML IV PRN (03:52)
[2023-03-02] MEDS ORDERED: BUPIVACAINE MPF 0.5% W/EPI INJ 30 ML VIAL ONE (06:28)
[2023-03-02] MEDS ORDERED: LIDOCAINE 1% INJ 50 ML MDV IJ ONE (06:28)
[2023-03-02] MEDS ORDERED: FENTANYL PF 250MCG/5ML AMPUL ONE (06:38)
[2023-03-02] MEDS ORDERED: MIDAZOLAM HCL 2 MG/2ML VIAL ONE (06:38)
[2023-03-02] MEDS ORDERED: ROCURONIUM BROMIDE 50 MG/5 ML ONE ×2 (06:39→08:34)
[2023-03-02] MEDS ORDERED: BUPIVACAINE 0.5 % PF 150 MG/30 ML VIAL ONE ×2 (06:39→14:42)
[2023-03-02] MEDS ORDERED: dexaMETHasone SOD PHOSPHATE 10 MG/ML VIAL ONE (06:39)
[2023-03-02] MEDS ORDERED: FAMOTIDINE/PF INJ 20 MG/2 ML VIAL IV ONE (06:39)
[2023-03-02 06:50] LABS: BASOPHILS % (AUTO) 0.3 % (0.0-2.0); EOSINOPHILS # (AUTO) 0.2 K/uL (0.0-0.7); HEMATOCRIT 34 % (33-45); HEMOGLOBIN 10.4 g/dL (11.5-14.8); LYMPHOCYTES % (AUTO) 30.2 % (20.0-44.0); MEAN CORPUSCULAR HEMOGLOBIN 23 PG (26.0-33.0); MEAN CORPUSCULAR HGB CONC 31 g/dl (31.0-36.0); MEAN CORPUSCULAR VOLUME 76 fL (82-100); MONOCYTES % (AUTO) 15.6 % (2.0-12.0); NEUTROPHILS # (AUTO) 3.4 K/uL (1.8-8.9); NEUTROPHILS % (AUTO) 50.9 % (43.0-81.0); PLATELET COUNT (AUTO) 295 K/uL (150-450); RED BLOOD CELL COUNT(AUTO) 4.47 MIL/uL (4.0-5.2); RED CELL DISTRIBUTION WIDTH 18.8 % (11.5-15.0); WHITE BLOOD COUNT (AUTO) 6.7 K/uL (4.3-11.0)
[2023-03-02 07:06] LABS: INR 0.97 (0.91-1.10); PARTIAL THROMBOPLASTIN TIME 29.7 SEC (24.3-34.3); PROTHROMBIN TIME 10.2 SECS (9.2-11.1)
[2023-03-02] MEDS ORDERED: ACETAMINOPHEN 325 MG TABLET ONE (07:13)
[2023-03-02 07:17] LABS: CALCIUM, SERUM 9.1 mg/dL (8.5-10.1); CREATININE 0.7 mg/dL (0.6-1.3); POTASSIUM 3.7 mmol/L (3.5-5.1)
[2023-03-02] MEDS: PANTOPRAZOLE 40 MG TABLET.DR PO SCH (07:30)
[2023-03-02 08:00] VITALS: BP 107/64; TEMP 98.1; O2SAT 97
[2023-03-02] MEDS: METHOCARBAMOL (500MG) 500 MG TABLET PO SCH ×2 (09:00→16:47)
[2023-03-02] MEDS: PIPERACILLIN /TAZOBACTAM 3.375 G in IV D5W 100 ML IV SCH ×2 (09:00→18:00)
[2023-03-02] MEDS: ESCITALOPRAM OXALATE (10 MG) 10 MG TABLET PO SCH (09:00)
[2023-03-02] MEDS: GABAPENTIN 300 MG CAPSULE PO SCH ×4 (09:00→21:13)
[2023-03-02] MEDS ORDERED: CELLULOSE,OXIDIZED 1 EACH EACH MC ONE (09:28)
[2023-03-02] MEDS ORDERED: BACITRACIN ZINC OINT (15 GM) 15 GM TUBE TP ONE (09:55)
[2023-03-02] MEDS ORDERED: hydrALAZINE HCL IV 20 MG VIAL ONE (10:01)
[2023-03-02] MEDS ORDERED: HYDROMORPHONE INJ 2 MG/ML DISP.SYRIN ONE (10:34)
[2023-03-02] MEDS ORDERED: FENTANYL PF 100MCG/2ML AMPUL ONE (10:41)
[2023-03-02] MEDS ORDERED: ONDANSETRON HCL/PF 4 MG/2 ML VIAL ONE (10:42)
[2023-03-02] MEDS ORDERED: IV LR 1000 ML 1,000 ML IV PRN (11:00)
[2023-03-02 11:35] VITALS: BP 129/56; TEMP 97.8; O2SAT 100
[2023-03-02 11:50] VITALS: BP 116/60; TEMP 98; O2SAT 99
[2023-03-02 12:05] VITALS: BP 122/62; TEMP 98
[2023-03-02] MEDS: HYDROCODONE/APAP 5/325MG TABLET PO PRN ×2 (12:06→23:22)
[2023-03-02 12:25] VITALS: BP 120/61; TEMP 97.9
[2023-03-02] MEDS: CELECOXIB 100 MG CAPSULE PO SCH (13:32)
[2023-03-02] MEDS: ACETAMINOPHEN 325 MG TABLET PO SCH ×2 (13:32→21:13)
[2023-03-02] MEDS ORDERED: POLYMYXIN B SULFATE 0 UNITS ONE (14:41)
[2023-03-02] MEDS ORDERED: ANESTHESIA TRAY IN PYXIS 1 EA TRAY MC ONE (14:41)
[2023-03-02] MEDS ORDERED: VANCOMYCIN 1 GM VIAL ONE (14:42)
[2023-03-02 20:00] VITALS: BP 170/75; TEMP 99.2; O2SAT 96
[2023-03-02] MEDS: EZETIMIBE 10 MG TABLET PO SCH (21:13)
[2023-03-02] MEDS: ATORVASTATIN 40 MG TABLET PO SCH (21:13)
[2023-03-02] MEDS: SENNOSIDES 8.6 MG TABLET PO SCH (21:13)
[2023-03-03] MEDS: CELECOXIB 100 MG CAPSULE PO SCH (02:12)
[2023-03-03] MEDS: PIPERACILLIN /TAZOBACTAM 3.375 G in IV D5W 100 ML IV SCH ×2 (02:12→10:00)
[2023-03-03 05:46] LABS: BASOPHILS % (AUTO) 0.1 % (0.0-2.0); HEMATOCRIT 29 % (33-45); HEMOGLOBIN 8.8 g/dL (11.5-14.8); LYMPHOCYTES # (AUTO) 1.2 K/uL (0.8-4.8); LYMPHOCYTES % (AUTO) 8.8 % (20.0-44.0); MEAN CORPUSCULAR HEMOGLOBIN 23 PG (26.0-33.0); MEAN CORPUSCULAR HGB CONC 30 g/dl (31.0-36.0); MEAN CORPUSCULAR VOLUME 75 fL (82-100); MONOCYTES # (AUTO) 1.3 K/uL (0.1-1.30); MONOCYTES % (AUTO) 9.4 % (2.0-12.0); NEUTROPHILS % (AUTO) 81.7 % (43.0-81.0); PLATELET COUNT (AUTO) 294 K/uL (150-450); RED BLOOD CELL COUNT(AUTO) 3.87 MIL/uL (4.0-5.2); RED CELL DISTRIBUTION WIDTH 18.7 % (11.5-15.0); WHITE BLOOD COUNT (AUTO) 13.4 K/uL (4.3-11.0)
[2023-03-03] MEDS: ACETAMINOPHEN 325 MG TABLET PO SCH (06:00)
[2023-03-03] MEDS: GABAPENTIN 300 MG CAPSULE PO SCH (06:00)
[2023-03-03 06:02] LABS: CALCIUM, SERUM 9.2 mg/dL (8.5-10.1); CREATININE 0.7 mg/dL (0.6-1.3); MAGNESIUM 1.9 mg/dL (1.8-2.4); PHOSPHORUS 3.7 mg/dL (2.5-4.9)
[2023-03-03] MEDS: ESCITALOPRAM OXALATE (10 MG) 10 MG TABLET PO SCH (08:03)
[2023-03-03] MEDS: PANTOPRAZOLE 40 MG TABLET.DR PO SCH (08:03)
[2023-03-03] MEDS: METHOCARBAMOL (500MG) 500 MG TABLET PO SCH (08:03)
[2023-03-03 08:28] VITALS: BP 139/60; TEMP 97.7; O2SAT 99
[2023-03-03] MEDS ORDERED: ZOLP5TAB2 PO ×2 (10:03→10:08)
[2023-03-03] MEDS ORDERED: LEVO500T90 PO ×2 (10:03→12:17)
[2023-03-03] MEDS ORDERED: HYDR-3972 PO ×2 (10:03→10:08)
[2023-03-03] MEDS ORDERED: ACID1TAB4 PO ×2 (10:03→12:17)
[2023-03-03] MEDS ORDERED: PANT40TA2 PO ×2 (10:03→12:17)
== END 2023-03-03 12:44 | disposition home or self-care (01) | DRG 418 ==
LOC: ER 13:32 → MED 17:22
PROVIDERS: ATTEND Nurse Practitioner Acute Care
PROC: 0FT44ZZ Resection of Gallbladder, Percutaneous Endoscopic Approach (ICD-10-PCS; principal; 2023-03-02)
PROC: 0DNU0ZZ Release Omentum, Open Approach (ICD-10-PCS; 2023-03-02)
DX: K80.12 Calculus of gallbladder with acute and chronic cholecystitis without obstruction (principal); R78.81 Bacteremia; E87.6 Hypokalemia; E11.9 Type 2 diabetes mellitus without complications; I10 Essential (primary) hypertension; K66.0 Peritoneal adhesions (postprocedural) (postinfection); E66.9 Obesity, unspecified; F17.210 Nicotine dependence, cigarettes, uncomplicated; Z82.3 Family history of stroke; Z86.73 Personal history of transient ischemic attack (TIA), and cerebral infarction without residual deficits; Z98.84 Bariatric surgery status; Z90.710 Acquired absence of both cervix and uterus; E78.5 Hyperlipidemia, unspecified; M51.36 Other intervertebral disc degeneration, lumbar region; Z68.34 Body mass index [BMI] 34.0-34.9, adult; B96.20 Unspecified Escherichia coli [E. coli] as the cause of diseases classified elsewhere
CPT/HCPCS: 36415; 71045-TC; 72110-TC; 74181-TC; 76705-TC; 80048-TC; 80076-TC; 81001; 82962-TC; 83605-TC; 83690-TC; 83735-TC; 84100-TC; 84484-TC; 85025-TC; 85610-TC; 85730-TC; 86850-TC; 87040-TC; 87086-TC; 87186-TC; 88304-TC; 93307-TC; 94799-TC; A4223; G0378; J0360; J0690; J0696; J1100; J1170; J1885; J2250; J2270; J2405; J2543; J2704; J2765; J3010; J3370; J3490; J7030; J7040; J7060; J7120

== ENCOUNTER 2023-03-27 17:31 | Inpatient (IN) | payer MEDICARE, OTHER ==
[~2023-03-27] VITALS: Ht 167.6 cm; Wt 97.5 kg
[~2023-03-27 17:31] MED LIST changes: +ACID1TAB4 PO; -AMLO-212 PO; -CILO100T PO; -CLOP75TA15 PO; -ESCI10TA PO; +ESCI20TA PO; +EZET10TA16 PO; +HYDR-4303 PO; +LEVO500T90 PO; -METH-647 PO; +METH500T6 PO; -OMEP40CA21 PO; +PANT40TA2 PO; -PRED50TA PO; +ROSU40TA PO; +SENN-261 PO; +ZOLP5TAB2 PO
[2023-03-27] MEDS ORDERED: IV NS 0.9% 500 ML BAG IV ONE (18:00)
[2023-03-27 18:35] LABS: BASOPHILS % (AUTO) 0.5 % (0.0-2.0); EOSINOPHILS # (AUTO) 0.1 K/uL (0.0-0.7); EOSINOPHILS % (AUTO) 0.8 % (0.0-6.0); HEMATOCRIT 29 % (33-45); HEMOGLOBIN 9.2 g/dL (11.5-14.8); LYMPHOCYTES # (AUTO) 3.1 K/uL (0.8-4.8); LYMPHOCYTES % (AUTO) 34.9 % (20.0-44.0); MEAN CORPUSCULAR HEMOGLOBIN 24 PG (26.0-33.0); MEAN CORPUSCULAR HGB CONC 32 g/dl (31.0-36.0); MEAN CORPUSCULAR VOLUME 77 fL (82-100); MONOCYTES # (AUTO) 0.7 K/uL (0.1-1.30); MONOCYTES % (AUTO) 7.9 % (2.0-12.0); NEUTROPHILS # (AUTO) 4.9 K/uL (1.8-8.9); NEUTROPHILS % (AUTO) 55.9 % (43.0-81.0); PLATELET COUNT (AUTO) 507 K/uL (150-450); RED BLOOD CELL COUNT(AUTO) 3.77 MIL/uL (4.0-5.2); RED CELL DISTRIBUTION WIDTH 21.6 % (11.5-15.0); WHITE BLOOD COUNT (AUTO) 8.8 K/uL (4.3-11.0)
[2023-03-27 18:42] LABS: CALCIUM, SERUM 8.2 mg/dL (8.5-10.1); CREATININE 0.9 mg/dL (0.6-1.3)
[2023-03-27 18:44] LABS: POTASSIUM 2.8 mmol/L (3.5-5.1)
[2023-03-27 18:48] LABS: ALBUMIN 2.2 g/dL (3.4-5.0); BILIRUBIN,DIRECT 0.1 mg/dL (0.0-0.2); BILIRUBIN,TOTAL 0.2 mg/dL (0.2-1.0); TOTAL PROTEIN, SERUM 5.6 g/dL (6.4-8.2)
[2023-03-27] MEDS ORDERED: ONDANSETRON HCL/PF 4 MG/2 ML VIAL ONE (20:28)
[2023-03-27] MEDS ORDERED: HYDROMORPHONE 1 MG/1 ML DISP.SYRIN ONE (20:29)
[2023-03-27] MEDS ORDERED: POTASSIUM CL. PREMIX PERIPHER. 50 ML ONE (20:29)
[2023-03-27] MEDS ORDERED: ONDANSETRON HCL/PF 4 MG/2 ML VIAL IVP ONE (20:30)
[2023-03-27] MEDS ORDERED: HYDROMORPHONE INJ 2 MG/ML DISP.SYRIN IV ONE (20:30)
[2023-03-27] MEDS ORDERED: POTASSIUM CL. PREMIX PERIPHER. 50 ML IV SCH (20:30)
[2023-03-27 20:53] LABS: INR 0.97 (0.91-1.10); PARTIAL THROMBOPLASTIN TIME 28.5 SEC (24.3-34.3); PROTHROMBIN TIME 10.3 SECS (9.2-11.1)
[2023-03-27] MEDS ORDERED: FENTANYL PF 100MCG/2ML AMPUL ONE ×2 (21:09→21:45)
[2023-03-27] MEDS ORDERED: MIDAZOLAM 50 MG/10 ML VIAL ONE (21:09)
[2023-03-27] MEDS: FENTANYL PF 100MCG/2ML AMPUL IV ONE ×2 (21:30→21:50)
[2023-03-27] MEDS: MIDAZOLAM HCL 2 MG/2ML VIAL IV ONE ×2 (21:30→21:50)
[2023-03-27] MEDS ORDERED: LIDOCAINE 1% INJ 50 ML MDV IJ ONE (21:34)
[2023-03-27] MEDS ORDERED: BUPIVACAINE MPF 0.5% W/EPI INJ 30 ML VIAL ONE (21:34)
[2023-03-27] MEDS ORDERED: ANESTHESIA TRAY IN PYXIS 1 EA TRAY MC ONE (21:34)
[2023-03-27] MEDS ORDERED: ROCURONIUM BROMIDE 50 MG/5 ML ONE (21:45)
[2023-03-27] MEDS ORDERED: MIDAZOLAM HCL 2 MG/2ML VIAL ONE (21:45)
[2023-03-27] MEDS ORDERED: FAMOTIDINE/PF INJ 20 MG/2 ML VIAL IV ONE (21:45)
[2023-03-27] MEDS ORDERED: HYDROMORPHONE INJ 2 MG/ML DISP.SYRIN ONE (22:14)
[2023-03-27] MEDS ORDERED: LABETALOL HCL IV 100MG VIAL ONE (22:14)
[2023-03-27] MEDS ORDERED: POTASSIUM CL. PREMIX PERIPHER. 200 ML ONE (22:26)
[2023-03-27 22:28] LABS: IRON, SERUM 21 ug/dl (50-175); TOTAL IRON BINDING CAPACITY 205 ug/dl (250-450)
[2023-03-27] MEDS ORDERED: IV NS 0.9% 1,000 ML IV SCH (22:30)
[2023-03-27] MEDS ORDERED: MORPHINE SULFATE INJ 2 MG/ML DISP.SYRIN IV PRN (22:30)
[2023-03-27] MEDS ORDERED: ONDANSETRON HCL/PF 4 MG/2 ML VIAL IVP PRN (22:30)
[2023-03-27] MEDS ORDERED: ACETAMINOPHEN 325 MG TABLET PO PRN (22:30)
[2023-03-27] MEDS ORDERED: DEXTROSE 50%-WATER 50 ML DISP.SYRIN IV PRN (22:30)
[2023-03-27] MEDS ORDERED: hydrALAZINE HCL IV 20 MG VIAL IV PRN (22:30)
[2023-03-27 22:41] LABS: FERRITIN 45 ng/mL (8-388)
[2023-03-28] MEDS ORDERED: ANESTHESIA TRAY IN PYXIS 1 EA TRAY MC ONE (00:38)
[2023-03-28] MEDS ORDERED: KETOROLAC TROMETHAMINE INJ 30 MG/ML VIAL ONE (00:40)
[2023-03-28] MEDS: HYDROMORPHONE 1 MG/1 ML DISP.SYRIN IV PRN ×2 (01:49→14:28)
[2023-03-28 02:59] LABS: CALCIUM, SERUM 8.1 mg/dL (8.5-10.1); CREATININE 0.9 mg/dL (0.6-1.3); POTASSIUM 3.7 mmol/L (3.5-5.1)
[2023-03-28 06:23] LABS: BASOPHILS % (AUTO) 0.1 % (0.0-2.0); HEMATOCRIT 30 % (33-45); HEMOGLOBIN 9.1 g/dL (11.5-14.8); LYMPHOCYTES # (AUTO) 0.7 K/uL (0.8-4.8); LYMPHOCYTES % (AUTO) 5.8 % (20.0-44.0); MEAN CORPUSCULAR HEMOGLOBIN 24 PG (26.0-33.0); MEAN CORPUSCULAR HGB CONC 31 g/dl (31.0-36.0); MEAN CORPUSCULAR VOLUME 79 fL (82-100); MONOCYTES # (AUTO) 0.2 K/uL (0.1-1.30); MONOCYTES % (AUTO) 1.7 % (2.0-12.0); NEUTROPHILS # (AUTO) 11.5 K/uL (1.8-8.9); NEUTROPHILS % (AUTO) 92.4 % (43.0-81.0); PLATELET COUNT (AUTO) 513 K/uL (150-450); RED BLOOD CELL COUNT(AUTO) 3.76 MIL/uL (4.0-5.2); RED CELL DISTRIBUTION WIDTH 21.8 % (11.5-15.0); WHITE BLOOD COUNT (AUTO) 12.5 K/uL (4.3-11.0)
[2023-03-28] MEDS ORDERED: HYDROMORPHONE 1 MG/1 ML DISP.SYRIN IV PRN (06:30)
[2023-03-28] MEDS ORDERED: HYDROCODONE/APAP 5/325MG TABLET PO PRN (06:30)
[2023-03-28 07:07] LABS: ALBUMIN 2.4 g/dL (3.4-5.0); BILIRUBIN,TOTAL 0.3 mg/dL (0.2-1.0); CALCIUM, SERUM 8.2 mg/dL (8.5-10.1); MAGNESIUM 1.5 mg/dL (1.8-2.4); PHOSPHORUS 3.2 mg/dL (2.5-4.9); POTASSIUM 3.3 mmol/L (3.5-5.1); TOTAL PROTEIN, SERUM 6.1 g/dL (6.4-8.2)
[2023-03-28] MEDS: BLOOD SUGAR DIAGNOSTIC 1 EACH STRIP IN SCH ×4 (07:22→22:19)
[2023-03-28] MEDS: INSULIN REGULAR, HUMAN 100 UNIT/ML 3 ML VIAL SQ PRN ×3 (07:24→22:22)
[2023-03-28] MEDS: PANTOPRAZOLE 40 MG TABLET.DR PO SCH (08:09)
[2023-03-28] MEDS ORDERED: IV NS 0.9% 1,000 ML IV PRN (08:21)
[2023-03-28] MEDS: ESCITALOPRAM OXALATE (10 MG) 10 MG TABLET PO SCH (09:10)
[2023-03-28] MEDS: HYDROCODONE/APAP 5/325MG TABLET PO PRN ×2 (09:10→21:29)
[2023-03-28] MEDS: GABAPENTIN 300 MG CAPSULE PO SCH ×2 (09:23→16:02)
[2023-03-28] MEDS ORDERED: MAGNESIUM OXIDE 400 MG TABLET PO ONE (10:30)
[2023-03-28] MEDS ORDERED: POTASSIUM CHLORIDE 20 MEQ TAB.PRT.SR PO SCH (11:00)
[2023-03-28] MEDS ORDERED: POTASSIUM CHLORIDE 20 MEQ POWDER PACKET PO SCH (11:00)
[2023-03-28] MEDS ORDERED: Magnesium 1GM/D5W 100ML PREMIX PIGGYBACK IV ONE (11:00)
[2023-03-28] MEDS ORDERED: SOD FERRIC GLUC 125 MG in IV NS 0.9% 100 ML IV SCH (14:00)
[2023-03-28 19:30] VITALS: BP 152/91; TEMP 98; O2SAT 96
[2023-03-28 20:34] VITALS: BP 152/91; TEMP 98; O2SAT 96
[2023-03-28] MEDS ORDERED: ATORVASTATIN 40 MG TABLET PO SCH (22:00)
[2023-03-28] MEDS ORDERED: EZETIMIBE 10 MG TABLET PO SCH (22:00)
[2023-03-28] MEDS ORDERED: ENOXAPARIN SODIUM 40 MG/0.4 ML DISP.SYRIN SQ SCH (22:30)
[2023-03-29 00:12] VITALS: BP 149/88; TEMP 98.9; O2SAT 96
[2023-03-29] MEDS: HYDROCODONE/APAP 5/325MG TABLET PO PRN ×2 (02:04→07:53)
[2023-03-29 04:46] VITALS: BP 146/89; TEMP 98.6; O2SAT 97
[2023-03-29 06:23] LABS: BASOPHILS % (AUTO) 0.2 % (0.0-2.0); EOSINOPHILS % (AUTO) 0.4 % (0.0-6.0); HEMATOCRIT 25 % (33-45); HEMOGLOBIN 7.9 g/dL (11.5-14.8); LYMPHOCYTES % (AUTO) 19.6 % (20.0-44.0); MEAN CORPUSCULAR HEMOGLOBIN 25 PG (26.0-33.0); MEAN CORPUSCULAR HGB CONC 32 g/dl (31.0-36.0); MEAN CORPUSCULAR VOLUME 78 fL (82-100); MONOCYTES % (AUTO) 10.4 % (2.0-12.0); NEUTROPHILS # (AUTO) 6.9 K/uL (1.8-8.9); NEUTROPHILS % (AUTO) 69.4 % (43.0-81.0); PLATELET COUNT (AUTO) 494 K/uL (150-450); RED CELL DISTRIBUTION WIDTH 21.5 % (11.5-15.0)
[2023-03-29 06:40] LABS: CALCIUM, SERUM 8.2 mg/dL (8.5-10.1); CREATININE 0.8 mg/dL (0.6-1.3); MAGNESIUM 1.9 mg/dL (1.8-2.4); PHOSPHORUS 3.2 mg/dL (2.5-4.9); POTASSIUM 3.5 mmol/L (3.5-5.1)
[2023-03-29 07:30] VITALS: BP 131/58; TEMP 98.1; O2SAT 96
[2023-03-29] MEDS: PANTOPRAZOLE 40 MG TABLET.DR PO SCH (07:42)
[2023-03-29] MEDS: BLOOD SUGAR DIAGNOSTIC 1 EACH STRIP IN SCH (07:42)
[2023-03-29] MEDS: GABAPENTIN 300 MG CAPSULE PO SCH (09:14)
[2023-03-29] MEDS: ESCITALOPRAM OXALATE (10 MG) 10 MG TABLET PO SCH (09:15)
[2023-03-29] MEDS ORDERED: DOCU-141 PO (09:32)
[2023-03-29] MEDS ORDERED: HYDR-3972 PO (09:32)
== END 2023-03-29 12:25 | disposition home or self-care (01) | DRG 353 ==
LOC: ER 17:35 → TELE 21:37
PROVIDERS: ADMIT Internal Medicine; ATTEND Nurse Practitioner Acute Care
PROC: 0WUF0JZ Supplement Abdominal Wall with Synthetic Substitute, Open Approach (ICD-10-PCS; principal; 2023-03-27)
PROC: 05H533Z Insertion of Infusion Device into Right Subclavian Vein, Percutaneous Approach (ICD-10-PCS; 2023-03-27)
PROC: B546ZZA Ultrasonography of Right Subclavian Vein, Guidance (ICD-10-PCS; 2023-03-27)
PROC: 0WJF4ZZ Inspection of Abdominal Wall, Percutaneous Endoscopic Approach (ICD-10-PCS; 2023-03-27)
DX: K43.6 Other and unspecified ventral hernia with obstruction, without gangrene (principal); E43 Unspecified severe protein-calorie malnutrition; K66.0 Peritoneal adhesions (postprocedural) (postinfection); E87.6 Hypokalemia; D50.9 Iron deficiency anemia, unspecified; D75.839 Thrombocytosis, unspecified; E83.42 Hypomagnesemia; D72.829 Elevated white blood cell count, unspecified; E11.9 Type 2 diabetes mellitus without complications; E66.9 Obesity, unspecified; F17.210 Nicotine dependence, cigarettes, uncomplicated; I10 Essential (primary) hypertension; Z90.49 Acquired absence of other specified parts of digestive tract; Z82.3 Family history of stroke; Z98.84 Bariatric surgery status; R74.8 Abnormal levels of other serum enzymes; E88.09 Other disorders of plasma-protein metabolism, not elsewhere classified; Z68.34 Body mass index [BMI] 34.0-34.9, adult; E78.5 Hyperlipidemia, unspecified
CPT/HCPCS: 36415; 71045-TC; 80048-TC; 80053-TC; 80076-TC; 82728-TC; 82962-TC; 83540-TC; 83690-TC; 83735-TC; 84100-TC; 85025-TC; 85730-TC; 87081-TC; 88302-TC; A4223; A6209; A6403; C1781; G0378; J0690; J1100; J1170; J1650; J1815; J1885; J2250; J2370; J2405; J2704; J2916; J3010; J3480; J3490; J7030; J7040

== ENCOUNTER 2023-04-10 09:29 | Emergency (ER) | payer MEDICARE, OTHER ==
[~2023-04-10] VITALS: Ht 162.6 cm; Wt 104.3 kg
[~2023-04-10 09:29] MED LIST changes: +DOCU-141 PO; -HYDR-4303 PO; -LEVO500T90 PO; -ZOLP5TAB2 PO
[2023-04-10] MEDS ORDERED: CEPH500T PO (10:55)
[2023-04-10 11:31] VITALS: BP 133/71; TEMP 208.4; O2SAT 99
== END 2023-04-10 11:31 | disposition home or self-care (01) ==
LOC: ER 09:29
DX: T81.30XA Disruption of wound, unspecified, initial encounter (principal); I10 Essential (primary) hypertension; E11.9 Type 2 diabetes mellitus without complications; E78.00 Pure hypercholesterolemia, unspecified; F17.200 Nicotine dependence, unspecified, uncomplicated; Z98.890 Other specified postprocedural states; Z79.899 Other long term (current) drug therapy; Z60.2 Problems related to living alone

== ENCOUNTER 2024-02-19 14:24 | Emergency (ER) | payer BC, MEDICAID ==
[~2024-02-19] VITALS: Ht 162.6 cm; Wt 98.9 kg
[~2024-02-19 14:24] MED LIST changes: +CEPH500T PO
[2024-02-19 14:31] VITALS: BP 151/72; TEMP 98.2; O2SAT 98
[2024-02-19] MEDS ORDERED: FLUT16SP16 BNOSTRILS (15:17)
[2024-02-19] MEDS ORDERED: AZIT500T4 PO (15:17)
== END 2024-02-19 15:34 | disposition home or self-care (01) ==
LOC: ER 14:29
DX: J01.90 Acute sinusitis, unspecified (principal); B96.89 Other specified bacterial agents as the cause of diseases classified elsewhere

== ENCOUNTER 2024-07-02 07:52 | Emergency (ER) | payer OTHER, MEDICAID ==
[~2024-07-02] VITALS: Ht 165.1 cm; Wt 89.5 kg
[~2024-07-02 07:52] MED LIST changes: +AZIT500T4 PO; +FLUT16SP16 BNOSTRILS
[2024-07-02 08:08] VITALS: TEMP 98.6
[2024-07-02] MEDS ORDERED: AZIT250T13 PO (08:58)
[2024-07-02 09:12] VITALS: BP 152/84; O2SAT 100
== END 2024-07-02 09:12 | disposition home or self-care (01) ==
LOC: ER 07:59
DX: J06.9 Acute upper respiratory infection, unspecified (principal); E11.9 Type 2 diabetes mellitus without complications; E78.5 Hyperlipidemia, unspecified; F17.200 Nicotine dependence, unspecified, uncomplicated; I10 Essential (primary) hypertension; Z79.899 Other long term (current) drug therapy; Z90.49 Acquired absence of other specified parts of digestive tract; Z98.84 Bariatric surgery status; Z60.2 Problems related to living alone; Z20.822 Contact with and (suspected) exposure to COVID-19

== ENCOUNTER 2025-02-02 14:03 | Emergency (ER) | payer MEDICARE, OTHER ==
[~2025-02-02] VITALS: Ht 167.6 cm; Wt 98.9 kg
[~2025-02-02 14:03] MED LIST changes: +AZIT250T13 PO
[2025-02-02] MEDS ORDERED: IBUPROFEN 400 MG TABLET ONE (14:50)
[2025-02-02] MEDS: IBUPROFEN 400 MG TABLET PO ONE (14:53)
[2025-02-02 15:25] LABS: PLATELET COUNT (AUTO) 308 K/uL (150-450); RED BLOOD CELL COUNT(AUTO) 3.82 MIL/uL (4.0-5.2); RED CELL DISTRIBUTION WIDTH 17.4 % (11.5-15.0); WHITE BLOOD COUNT (AUTO) 8.9 K/uL (4.3-11.0)
[2025-02-02] MEDS ORDERED: GABA300C PO (15:29)
[2025-02-02] MEDS ORDERED: IBUP-1957 PO (15:29)
[2025-02-02 15:33] LABS: CALCIUM, SERUM 8.6 mg/dL (8.5-10.1); CREATININE 1.1 mg/dL (0.6-1.3); SODIUM SERUM 138.0 mmol/L (136-145); UREA NITROGEN, BLOOD 16.0 mg/dL (7-18)
[2025-02-02 15:39] LABS: ASPARTATE AMINOTRANSFERASE 14.0 U/L (15-37); TOTAL PROTEIN, SERUM 6.9 g/dL (6.4-8.2)
[2025-02-02 15:41] VITALS: BP 128/84; TEMP 97.8; O2SAT 100
== END 2025-02-02 15:42 | disposition home or self-care (01) ==
LOC: ER 14:03
DX: M79.18 Myalgia, other site (principal); I10 Essential (primary) hypertension; E11.9 Type 2 diabetes mellitus without complications; E78.5 Hyperlipidemia, unspecified; F17.200 Nicotine dependence, unspecified, uncomplicated; Z79.899 Other long term (current) drug therapy; Z90.49 Acquired absence of other specified parts of digestive tract; Z98.84 Bariatric surgery status; Z60.2 Problems related to living alone
CPT/HCPCS: 36415; 73590-TC; 80053-TC; 85025-TC; 93971-TC

== ENCOUNTER 2025-03-12 13:31 | Inpatient (IN) | payer MEDICARE, OTHER ==
[~2025-03-12] VITALS: Ht 162.6 cm; Wt 90.7 kg
[~2025-03-12 13:31] MED LIST changes: +IBUP-1957 PO
[2025-03-12 14:00] VITALS: BP 149/81; TEMP 98.4; O2SAT 99
[2025-03-12] MEDS ORDERED: KETOROLAC TROMETHAMINE INJ 30 MG/ML VIAL ONE (14:18)
[2025-03-12] MEDS: KETOROLAC TROMETHAMINE INJ 30 MG/ML VIAL IM ONE (14:22)
[2025-03-12 15:58] LABS: PLATELET COUNT (AUTO) 293 K/uL (150-450); RED BLOOD CELL COUNT(AUTO) 4.08 MIL/uL (4.0-5.2); RED CELL DISTRIBUTION WIDTH 16.9 % (11.5-15.0); WHITE BLOOD COUNT (AUTO) 5.6 K/uL (4.3-11.0)
[2025-03-12 16:15] LABS: CALCIUM, SERUM 9.1 mg/dL (8.5-10.1); CREATININE 1.0 mg/dL (0.6-1.3); SODIUM SERUM 138.0 mmol/L (136-145); UREA NITROGEN, BLOOD 15.0 mg/dL (7-18)
[2025-03-12] MEDS ORDERED: HEPARIN INFUSION/D5W 0 ML IV ONE (16:21)
[2025-03-12] MEDS ORDERED: HEPARIN SODIUM, PORCINE 5000 UNITS/1 ML VIAL ONE (16:21)
[2025-03-12 16:27] LABS: INR 0.9 (0.91-1.10)
[2025-03-12 16:30] LABS: ASPARTATE AMINOTRANSFERASE 16.0 U/L (15-37); TOTAL PROTEIN, SERUM 7.5 g/dL (6.4-8.2)
[2025-03-12] MEDS ORDERED: ACETAMINOPHEN 325 MG TABLET PO PRN (16:30)
[2025-03-12] MEDS ORDERED: hydrALAZINE HCL IV 20 MG VIAL IV PRN (16:30)
[2025-03-12] MEDS ORDERED: MORPHINE SULFATE INJ 2 MG/ML DISP.SYRIN IV PRN (16:30)
[2025-03-12] MEDS ORDERED: ONDANSETRON HCL/PF 4 MG/2 ML VIAL IVP PRN (16:30)
[2025-03-12] MEDS ORDERED: AMLO-212 PO (16:38)
[2025-03-12] MEDS ORDERED: [UNRECOGNIZED DRUG - CODE] PO (16:38)
[2025-03-12] MEDS ORDERED: FURO20TA4 PO (16:38)
[2025-03-12] MEDS ORDERED: ATOR20TA PO (16:38)
[2025-03-12] MEDS ORDERED: LISI20TA30 PO (16:38)
[2025-03-12] MEDS ORDERED: MAGN500T2 PO (16:38)
[2025-03-12] MEDS ORDERED: HYDR-4209 PO (16:38)
[2025-03-12] MEDS ORDERED: LIDO1ADH71 TP (16:38)
[2025-03-12] MEDS ORDERED: CHLO25TA2 PO (16:38)
[2025-03-12] MEDS ORDERED: ACET-73 PO (16:38)
[2025-03-12] MEDS ORDERED: GUAI400T11 PO (16:38)
[2025-03-12] MEDS ORDERED: PANT40TA49 PO (16:38)
[2025-03-12] MEDS: HEPARIN INFUSION/D5W 500 ML IV ONE (16:45)
[2025-03-12] MEDS: HEPARIN SODIUM, PORCINE 5000 UNITS/1 ML VIAL IV ONE (16:45)
[2025-03-12 18:10] LABS: EOSINOPHILS % (MANUAL) 1 % (0-4); LYMPHOCYTES % (MANUAL) 37 % (16-48); MONOCYTES % (MANUAL) 8 % (0-11.0); NEUTROPHILS % (MANUAL) 54 (42-76); PLATELET ESTIMATE ADEQUATE
== END 2025-03-13 19:40 | disposition left against medical advice (07) | DRG 301 ==
LOC: ER 13:41 → TELE1 16:25 → TELE IN 16:28
PROVIDERS: ADMIT Internal Medicine; ATTEND Internal Medicine
DX: E11.51 Type 2 diabetes mellitus with diabetic peripheral angiopathy without gangrene (principal); I70.201 Unspecified atherosclerosis of native arteries of extremities, right leg; M79.661 Pain in right lower leg; E78.5 Hyperlipidemia, unspecified; Z98.84 Bariatric surgery status; Z90.49 Acquired absence of other specified parts of digestive tract; I10 Essential (primary) hypertension; Z87.891 Personal history of nicotine dependence
CPT/HCPCS: 36415; 73590-TC; 80048-TC; 80076-TC; 83690-TC; 85027-TC; 85730-TC; 86850-TC; 93926-TC; 93971-TC; G0378; J1644; J1885

== ENCOUNTER 2025-03-13 11:12 | Emergency (ER) | payer MEDICARE, OTHER ==
[~2025-03-13] VITALS: Ht 162.6 cm; Wt 95.3 kg
[~2025-03-13 11:12] MED LIST changes: +ACET-73 PO; -ACID1TAB4 PO; +AMLO-212 PO; +ATOR20TA PO; -AZIT250T13 PO; -AZIT500T4 PO; -CEPH500T PO; +CHLO25TA2 PO; -DOCU-141 PO; -ESCI20TA PO; -EZET10TA16 PO; -FLUT16SP16 BNOSTRILS; +FURO20TA4 PO; +GUAI400T11 PO; -HYDR-3972 PO; +HYDR-4209 PO; -IBUP-1957 PO; +LIDO1ADH71 TP; +LISI20TA30 PO; +MAGN500T2 PO; -METH500T6 PO; -PANT40TA2 PO; +PANT40TA49 PO; -SEMA14TA PO; -SENN-261 PO; +[UNRECOGNIZED DRUG - CODE] PO
[2025-03-13 12:07] LABS: PLATELET COUNT (AUTO) 314 K/uL (150-450); RED BLOOD CELL COUNT(AUTO) 4.17 MIL/uL (4.0-5.2); RED CELL DISTRIBUTION WIDTH 16.7 % (11.5-15.0); WHITE BLOOD COUNT (AUTO) 5.5 K/uL (4.3-11.0)
[2025-03-13 12:15] LABS: CALCIUM, SERUM 9.4 mg/dL (8.5-10.1); CREATININE 1.1 mg/dL (0.6-1.3); SODIUM SERUM 138.0 mmol/L (136-145); UREA NITROGEN, BLOOD 17.0 mg/dL (7-18)
[2025-03-13 12:18] LABS: INR 0.9 (0.91-1.10)
[2025-03-13] MEDS ORDERED: HEPARIN SODIUM, PORCINE 5000 UNITS/1 ML VIAL ONE (12:27)
[2025-03-13] MEDS ORDERED: HEPARIN INFUSION/D5W 500 ML IV ONE (12:28)
[2025-03-13] MEDS: HEPARIN SODIUM, PORCINE 5000 UNITS/1 ML VIAL IV ONE (12:45)
[2025-03-13] MEDS: HEPARIN INFUSION/D5W 500 ML IV ONE (12:50)
[2025-03-13] MEDS ORDERED: MAG HYDROX/AL HYDROX/SIMETH 30 ML UDC PO PRN (15:30)
[2025-03-13] MEDS ORDERED: ACETAMINOPHEN 325 MG TABLET PO PRN (15:30)
[2025-03-13] MEDS ORDERED: MAGNESIUM HYDROXIDE 30 ML UDC PO PRN (15:30)
[2025-03-13] MEDS ORDERED: HEPARIN INFUSION/D5W 500 ML IV PRN (15:30)
[2025-03-13] MEDS ORDERED: ONDANSETRON HCL/PF 4 MG/2 ML VIAL IVP PRN (15:30)
[2025-03-13] MEDS ORDERED: Z GUARD REMEDY 4 OZ OINT TP PRN (15:30)
[2025-03-13] MEDS ORDERED: HYDROCODONE/APAP 5/325MG TABLET PO PRN (16:00)
[2025-03-13] MEDS ORDERED: GABAPENTIN 300 MG CAPSULE ONE (19:23)
[2025-03-13] MEDS: GABAPENTIN 300 MG CAPSULE PO SCH (19:36)
[2025-03-13 19:42] VITALS: BP 141/73; TEMP 98.1; O2SAT 99
[2025-03-14] MEDS ORDERED: FUROSEMIDE 20 MG TABLET PO SCH (09:00)
[2025-03-14] MEDS ORDERED: AMLODIPINE BESYLATE 5 MG TABLET PO SCH (09:00)
[2025-03-14] MEDS ORDERED: PANTOPRAZOLE 40 MG TABLET.DR PO SCH (09:00)
[2025-03-14] MEDS ORDERED: LISINOPRIL (20MG) 20 MG TABLET PO SCH (09:00)
== END 2025-03-13 19:43 | disposition home or self-care (01) ==
LOC: ER 11:15
DX: I70.201 Unspecified atherosclerosis of native arteries of extremities, right leg (principal); I11.9 Hypertensive heart disease without heart failure; E11.51 Type 2 diabetes mellitus with diabetic peripheral angiopathy without gangrene; E66.9 Obesity, unspecified; E78.00 Pure hypercholesterolemia, unspecified; F17.200 Nicotine dependence, unspecified, uncomplicated; Z53.29 Procedure and treatment not carried out because of patient's decision for other reasons; Z79.899 Other long term (current) drug therapy; Z82.3 Family history of stroke; Z86.718 Personal history of other venous thrombosis and embolism; Z90.49 Acquired absence of other specified parts of digestive tract; Z98.84 Bariatric surgery status; Z60.2 Problems related to living alone; Z86.2 Personal history of diseases of the blood and blood-forming organs and certain disorders involving the immune mechanism; Z68.36 Body mass index [BMI] 36.0-36.9, adult
CPT/HCPCS: 99284; 96365; 96376; 85025; 80048; 36415; 85730; 87081; J1644 ×2

== ENCOUNTER 2025-04-22 10:21 | Emergency (ER) | payer MEDICARE, MEDICAID ==
[~2025-04-22] VITALS: Ht 162.6 cm; Wt 93.9 kg
[2025-04-22 11:18] LABS: PLATELET COUNT (AUTO) 410 K/uL (150-450); RED BLOOD CELL COUNT(AUTO) 4.03 MIL/uL (4.0-5.2); RED CELL DISTRIBUTION WIDTH 17.6 % (11.5-15.0); WHITE BLOOD COUNT (AUTO) 4.3 K/uL (4.3-11.0)
[2025-04-22 11:26] LABS: CALCIUM, SERUM 8.5 mg/dL (8.5-10.1); CREATININE 1.1 mg/dL (0.6-1.3); SODIUM SERUM 137.0 mmol/L (136-145); UREA NITROGEN, BLOOD 14.0 mg/dL (7-18)
[2025-04-22 11:32] LABS: ASPARTATE AMINOTRANSFERASE 19.0 U/L (15-37); TOTAL PROTEIN, SERUM 6.9 g/dL (6.4-8.2)
[2025-04-22 11:34] LABS: INR 0.98 (0.91-1.10)
[2025-04-22] MEDS ORDERED: IOHEXOL-350 100 ML VIAL IV ONE (11:42)
[2025-04-22] MEDS ORDERED: CT SWABBABLE VALVE TRANS SET 1 EA INFUS.SET MC ONE (11:42)
[2025-04-22] MEDS ORDERED: IV NS 0.9% 250 ML IV ONE (11:42)
[2025-04-22] MEDS ORDERED: HEPARIN INFUSION/D5W 500 ML IV PRN (12:30)
[2025-04-22] MEDS: HYDROCODONE/APAP 5/325MG TABLET PO ONE (12:50)
[2025-04-22] MEDS: HEPARIN SODIUM,PORCINE/PF 50 UNIT/5 ML DISP.SYRIN IV ONE ×2 (13:17→13:33)
[2025-04-22] MEDS ORDERED: HEPARIN SODIUM, PORCINE 5000 UNITS/1 ML VIAL ONE (13:18)
[2025-04-22] MEDS ORDERED: HYDROCODONE/APAP 5/325MG TABLET ONE (13:22)
[2025-04-22] MEDS: HEPARIN SODIUM, PORCINE 5000 UNITS/1 ML VIAL IV ONE (13:34)
[2025-04-22 14:03] VITALS: BP 140/80; TEMP 98.5; O2SAT 98
== END 2025-04-22 14:05 | disposition left against medical advice (07) ==
LOC: ER 10:26
DX: I70.201 Unspecified atherosclerosis of native arteries of extremities, right leg (principal); E11.9 Type 2 diabetes mellitus without complications; E78.00 Pure hypercholesterolemia, unspecified; F17.200 Nicotine dependence, unspecified, uncomplicated; I11.9 Hypertensive heart disease without heart failure; Z79.899 Other long term (current) drug therapy; Z90.49 Acquired absence of other specified parts of digestive tract; Z98.84 Bariatric surgery status
CPT/HCPCS: 99291; 96374; 75635; 93926; 93005; 85025; 80048; 80076; 36415; 85730; J1644; J7050; Q9967; J1642